=== PATIENT | male | born 1995 | race Caucasian/White ===

== ENCOUNTER 2017-10-15 10:53 | Inpatient (IN) | payer MEDICARE, MEDICAID ==
--- NOTE | 2017-10-15 11:42 | ED ---
General Adult HPI - General Chief complaint: Psychiatric Symptoms Stated complaint: Suicidal Time Seen by Provider: 10/15/17 11:26 Source: patient, RN notes reviewed, old records reviewed Mode of arrival: EMS Limitations: no limitations - History of Present Illness Initial comments: This is a 21-year-old male the ER for evaluation. Patient is ER for evaluation regarding psychiatric illness. Patient is having delusions, not taking his psychiatric medications. Denies drugs or alcohol - Related Data Home Medications Medication Instructions Recorded Confirmed No Known Home Medications [No 10/15/17 10/15/17 Known Home Medications] Allergies Allergy/AdvReac Type Severity Reaction Status Date / Time cat dander Allergy Itching Verified 10/15/17 11:17 dog dander Allergy Itching Verified 10/15/17 11:17 Review of Systems ROS Statement: Those systems with pertinent positive or pertinent negative responses have been documented in the HPI. ROS Other: All systems not noted in ROS Statement are negative. Past Medical History Past Medical History: No Reported History Past Surgical History: No Surgical Hx Reported Past Psychological History: ADD/ADHD, Bipolar, Schizoaffective Disorder, Schizophrenia Smoking Status: Never smoker Past Alcohol Use History: None Reported Past Drug Use History: None Reported General Exam Limitations: no limitations General appearance: alert, in no apparent distress Head exam: Present: atraumatic, normocephalic, normal inspection Eye exam: Present: normal appearance, PERRL, EOMI. Absent: scleral icterus, conjunctival injection, periorbital swelling ENT exam: Present: normal exam, mucous membranes moist Neck exam: Present: normal inspection. Absent: tenderness, meningismus, lymphadenopathy Respiratory exam: Present: normal lung sounds bilaterally. Absent: respiratory distress, wheezes, rales, rhonchi, stridor Cardiovascular Exam: Present: regular rate, normal rhythm, normal heart sounds. Absent: systolic murmur, diastolic murmur, rubs, gallop, clicks GI/Abdominal exam: Present: soft, normal bowel sounds. Absent: distended, tenderness, guarding, rebound, rigid Extremities exam: Present: normal inspection, full ROM, normal capillary refill. Absent: tenderness, pedal edema, joint swelling, calf tenderness Back exam: Present: normal inspection Neurological exam: Present: alert, oriented X3, CN II-XII intact Psychiatric exam: Present: normal affect, normal mood Skin exam: Present: warm, dry, intact, normal color. Absent: rash Course Vital Signs 10/15/17 10/15/17 11:14 15:01 Temperature 99.8 F H 99.0 F Pulse Rate 117 H 100 Respiratory 16 18 Rate Blood Pressure 146/79 128/78 O2 Sat by Pulse 94 L 98 Oximetry - Reevaluation(s) Reevaluation #1: 10/15/17 11:42 Patient's medically clear for psychiatric evaluation Medical Decision Making - Medical Decision Making Vital male seen and evaluated by psychiatry, patient be admitted for psychiatric evaluation and treatment - Lab Data Lab Results 10/15/17 Range/Units 11:25 Urine Opiates Screen Not Detected (NotDetected) Ur Oxycodone Screen Not Detected (NotDetected) Urine Methadone Screen Not Detected (NotDetected) Ur Propoxyphene Screen Not Detected (NotDetected) Ur Barbiturates Screen Not Detected (NotDetected) U Tricyclic Antidepress Not Detected (NotDetected) Ur Phencyclidine Scrn Not Detected (NotDetected) Ur Amphetamines Screen Not Detected (NotDetected) U Methamphetamines Scrn Not Detected (NotDetected) U Benzodiazepines Scrn Not Detected (NotDetected) Urine Cocaine Screen Not Detected (NotDetected) U Marijuana (THC) Screen Not Detected (NotDetected) Disposition Clinical Impression: Acute psychosis, Psychosis Disposition: TRANSFER TO PSYCH HOSP/UNIT Condition: Fair Referrals: None,Stated [Primary Care Provider] - 1-2 days
[2017-10-15 12:07] LABS: Amphetamine Screen,Urine Not Detected (NotDetected); Barbiturate Screen,Urine Not Detected (NotDetected); Benzodiazepines Screen,Urine Not Detected (NotDetected); Cocaine Screen,Urine Not Detected (NotDetected); Methadone Screen, Urine Not Detected (NotDetected); Opiate Screen,Urine Not Detected (NotDetected); Oxycodone Screen, Urine Not Detected (NotDetected); Phencyclidine Screen,Urine Not Detected (NotDetected); Tricyclic Antidepressant,Urine Not Detected (NotDetected); Urn Cannabinoid Scrn Not Detected (NotDetected)
[2017-10-15] MEDS ORDERED: ZIPRASIDONE 20 MG VIAL IM PRN (16:25)
[2017-10-15] MEDS ORDERED: MAG HYDROX/AL HYDROX/SIMETH 30 ML CUP PO PRN (16:25)
[2017-10-15] MEDS ORDERED: MAGNESIUM HYDROXIDE 2,400 MG/10 ML CUP PO PRN (16:25)
[2017-10-15] MEDS ORDERED: ACETAMINOPHEN TAB 325 MG TAB PO PRN (16:25)
[2017-10-15 17:28] VITALS: BMI 25.1
[2017-10-15] MEDS: LORazepam 1 MG TAB PO PRN (17:47)
--- NOTE | 2017-10-15 21:08 | XR ---
EXAMINATION TYPE: XR chest 2V DATE OF EXAM: 10/15/2017 COMPARISON: None HISTORY: Fever TECHNIQUE: Frontal and lateral views of the chest are obtained. FINDINGS: Heart and mediastinum are normal. Lungs are clear. Diaphragm is normal. Bony thorax appear s normal. IMPRESSION: Normal chest.
[2017-10-15] MEDS: SODIUM CHLORIDE 0.9% 1,000 ML IV SCH (22:17)
--- NOTE | 2017-10-15 22:44 | P.HPMEDMHU ---
History of Present Illness H&P Date: 10/22/17 Chief Complaint: MHU HPI The patient is a 21-year-old male with a past medical history of schizophrenia bipolar disorder, attention deficit disorder who was admitted to the mental health unit, after he apparently presented with paranoid delusions reporting that the "spirit Was calling him a Temple" and that people are calling him pedophile. Patient has reported poor sleep and loss of interest other depressive symptomology. The patient reports being off any psychiatric medications and is unable to recall the name and dosages of his meds. The patient apparently has a history of asthma and takes inhaler, he reports his asthma is triggered by exercise and cold weather. He denies any chest pain or shortness of breath or cough at this time. Past Medical History Past Medical History: No Reported History History of Any Multi-Drug Resistant Organisms: None Reported Past Surgical History: Ear Surgery Additional Past Surgical History / Comment(s): When a small child date unknown. Past Anesthesia/Blood Transfusion Reactions: No Reported Reaction Past Psychological History: ADD/ADHD, Bipolar, Schizoaffective Disorder, Schizophrenia Smoking Status: Former smoker Past Alcohol Use History: None Reported Additional Past Alcohol Use History / Comment(s): drank a few last month but reports he does not like it. Past Drug Use History: None Reported Additional Drug Use History / Comment(s): hx of Marjuana use this past year. "Doesn't like it." Medications and Allergies Home Medications Medication Instructions Recorded Confirmed Type No Known Home Medications [No 10/15/17 10/15/17 History Known Home Medications] Allergies Allergy/AdvReac Type Severity Reaction Status Date / Time cat dander Allergy Itching Verified 10/15/17 17:10 dog dander Allergy Itching Verified 10/15/17 17:10 Physical Exam Vitals: Vital Signs Temp Pulse Pulse Resp BP BP Pulse Ox 10/15/17 17:11 97.3 F L 113 H 16 145/95 98 10/15/17 15:39 99.0 F 102 H 20 130/80 98 10/15/17 15:01 99.0 F 100 18 128/78 98 10/15/17 11:14 99.8 F H 117 H 16 146/79 94 L Intake and Output 10/15/17 10/15/17 10/15/17 06:59 14:59 22:59 Other: Weight 68.039 kg 77.1 kg Patient Weight 10/16/17 06:59 Weight 77.1 kg Constitutional: No acute distress, conversant, pleasant Eyes: Anicteric sclerae, moist conjunctiva, no lid-lag, PERRLA ENMT: NC/AT,Oropharynx clear, no erythema, exudates, dry mucous membranes Neck:Supple, FROM, no masses, or JVD, No carotid bruits; No thyromegaly Lungs: Clear to auscultation, Clear to percussion, Normal respiratory effort, no accessory muscle use Cardiovascular: Regular rhythm and tachycardic, No murmurs, gallops, or rubs no peripheral edema Abdominal: Soft Nontender, nom distended, no guarding, no rebound or rigidity, Normoactive bowel sounds No hepatomegaly, No splenomegaly, No palpable mass No abdominal wall hernia noted Skin: Normal temperature, tone, texture, decreased turgor, No induration No subcutaneous nodules, No rash, lesions, No ulcers Extremities:No digital cyanosis No clubbing, Pedal pulses intact and symmetrical Radial pulses intact and symmetrical Normal gait and station, No calf tenderness Psychiatric: Alert and oriented to person, place and time, poor insight poor judgment, flat affect, poor eye contact Neuro: Muscles Strength 5/5 in all 4 extremities, Sensation to light touch grossly present throughout, Cranial nerves II-XII grossly intact. No focal sensory deficits Cranial Nerve Examination - Cranial Nerves Cranial Nerve II- Optic: Intact Cranial Nerve III- Oculomotor: Intact Cranial Nerve IV- Trochlear: Intact Cranial Nerve V- Trigeminal: Intact Cranial Nerve - Abducens: Intact Cranial Nerve VII- Facial: Intact Cranial Nerve VIII- Auditory: Intact Cranial Nerve IX- Glossopharyngeal: Intact Cranial Nerve X- Vagus: Intact Cranial Nerve XI- Accessory: Intact Cranial Nerve XII- Hypoglossal: Intact Thrombosis Risk Factor Assmnt - Choose All That Apply Any of the Below Risk Factors Present?: No Assessment and Plan (1) Schizophrenia, chronic with acute exacerbation Current Visit: Yes Status: Acute Code(s): F20.9 - SCHIZOPHRENIA, UNSPECIFIED SNOMED Code(s): 219214057 (2) Exercise-induced asthma Current Visit: Yes Status: Acute Code(s): J45.990 - EXERCISE INDUCED BRONCHOSPASM SNOMED Code(s): 06229831 (3) Tachycardia Current Visit: Yes Status: Acute Code(s): R00.0 - TACHYCARDIA, UNSPECIFIED SNOMED Code(s): 4209239 Plan: The patient is admitted for acute psychosis on chronic schizophrenia to the mental health unit we'll defer to psychiatry team for progressive in patient treatment and medication dosage adjustment. At present the patient's asthma is stable without any acute exacerbation, review of his vital signs indicate the patient is tachycardic with a low-grade fever, will order CBC CMP chest x-ray and a urinalysis and start him on normal saline at 125 mL an hour as he clinically appears dehydrated. we'll continue to follow his clinical course. I sincerely appreciate the opportunity to be involved in the coordination of this patient's care
[2017-10-15 22:52] LABS: Basophils % (A) 1 %; Eosinophils # (A) 0.1 k/uL (0-0.7); Eosinophils % (A) 2 %; HCT 47.4 % (39.0-53.0); HGB 15.5 gm/dL (13.0-17.5); Lymphocytes # (A) 1.6 k/uL (1.0-4.8); Lymphocytes % (A) 25 %; MCHC 32.6 g/dL (31.0-37.0); MCV 88.7 fL (80.0-100.0); Mean Platelet Volume 8.9; Monocytes # (A) 0.4 k/uL (0-1.0); Monocytes % (A) 7 %; Neutrophils # (A) 3.9 k/uL (1.3-7.7); Neutrophils % (A) 63 %; Platelet Count 198 k/uL (150-450); RBC 5.34 m/uL (4.30-5.90); RDW 13.9 % (11.5-15.5); WBC 6.3 k/uL (3.8-10.6)
[2017-10-15 23:09] LABS: ALT 36 U/L (21-72); AST 16 U/L (17-59); Albumin 4.3 g/dL (3.5-5.0); Alkaline Phosphatase 71 U/L (38-126); Anion Gap 10 mmol/L; Blood Urea Nitrogen 16 mg/dL (9-20); Calcium 9.8 mg/dL (8.4-10.2); Carbon Dioxide 30 mmol/L (22-30); Chloride 102 mmol/L (98-107); Glucose 98 mg/dL (74-99); Potassium 4.4 mmol/L (3.5-5.1); Sodium 142 mmol/L (137-145); Total Bilirubin 0.5 mg/dL (0.2-1.3); Total Protein 7.3 g/dL (6.3-8.2)
[2017-10-16] MEDS: SODIUM CHLORIDE 0.9% 1,000 ML IV SCH (06:26)
[2017-10-16 08:31] LABS: Cholesterol 190 mg/dL (<200); HDL Cholesterol 50 mg/dL (40-60); LDL Cholesterol,Calculated 125 mg/dL (0-99); Triglycerides 74 mg/dL (<150)
--- NOTE | 2017-10-16 10:50 | P.PN ---
Subjective Progress Note Date: 10/16/17 Principal diagnosis: psychosis Patient is a 21-year-old male with past medical history any oh, bipolar, and ADHD who was admitted to the mental health unit for paranoid delusions. We are asked to see him for medical management of his exercise- induced asthma. Patient was started on IV fluids last night with concerns for clinical dehydration secondary to tachycardia. Patient seen and examined. He denies any chest pain, shortness of breath, lightheadedness, dizziness, or palpitations. He is feeling fine and would like his IV removed. He states that he may be tachycardic secondary to have being used multiple herbs over the last several days. He otherwise states that he is feeling home. He denies any nausea, vomiting, diarrhea, or dysuria. Objective - Vital Signs Vital signs: Vital Signs Temp 97.9 F 10/16/17 07:06 Pulse 104 H 10/16/17 07:06 Resp 18 10/16/17 07:06 BP 138/77 10/16/17 07:06 Pulse Ox 98 10/15/17 17:11 Intake & Output 10/15/17 10/16/17 10/16/17 18:59 06:59 18:59 Intake Total 125 Balance 125 Weight 77.1 kg Intake: IV 125 Invasive Line 1 125 - Exam General: non toxic, no distress, appears at stated age Derm: warm, dry Head: atraumatic, normocephalic, symmetric Eyes: EOMI, no lid lag, anicteric sclera Mouth: no lip lesion, mucus membranes moist Cardiovascular: S1S2 reg, no murmur, positive posterior tibial pulse bilateral, Lungs: CTA bilateral, no rhonchi, no rales , no accessory muscle use Abdominal: soft, nontender to palpation, no guarding, no appreciable organomegaly Ext: no gross muscle atrophy, no edema, no contractures Neuro: CN II-XI grossly intact, no focal neuro deficits Psych: Alert, oriented, anxious affect, pacing - Labs CBC & Chem 7: 10/15/17 22:43 10/15/17 22:43 Labs: Abnormal Lab Results - Last 24 Hours (Table) 10/15/17 10/16/17 Range/Units 22:43 07:40 AST 16 L (17-59) U/L LDL Cholesterol, Calc 125 H (0-99) mg/dL Assessment and Plan Assessment: Tachycardia: suspect drug induced versus anxiety related -DC IV fluids -Encourage oral fluid intake discussed with patient -Monitor a new Delusions -Your psych management Exercise-induced asthma -When necessary albuterol Thank you for allowing us to participate in the care of this patient. We will follow peripherally. Do not hesitate to contact us with questions. Someone can be reached from the [facility] hospitalist group at all hours of the day at [phone].
[2017-10-16 10:52] LABS: Appearance,Urine Clear (Clear); Bilirubin,Urine Negative (Negative); Blood,Urine Negative (Negative); Color,Urine Yellow; Glucose,Urine (UA) Negative (Negative); Ketones,Urine Trace (Negative); Leukocyte Esterase,Urine Negative (Negative); Nitrite,Urine Negative (Negative); Protein,Urine Negative (Negative); Specific Gravity,Urine 1.015 (1.001-1.035); Urobilinogen,Urine <2.0 mg/dL (<2.0)
[2017-10-16] MEDS: LORazepam 1 MG TAB PO PRN (16:27)
--- NOTE | 2017-10-16 17:02 | HP ---
HISTORY AND PHYSICAL DATE OF SERVICE: 10/16/2017 IDENTIFYING DATA: The patient is a 21-year-old male. He lives with 4 other roommates. He came to the emergency room for evaluation. CHIEF COMPLAINT: The patient had paranoid feelings. He believes others can read his thoughts. He believes people around him were calling him derogatory names. HISTORY OF PRESENT ILLNESS: Patient reports that he did have a prior psychiatric hospitalization at [facility] in July 2016. He said at that time he was diagnosed with schizophrenia and bipolar disorder. He says he also has a history of ADHD. He had been on ADHD medication in the past, namely Vyvanse. He could not remember what medications he was prescribed from [facility]. He has not been taking any psychotropic medications lately. He says just in the last few days. He started to developed the abnormal thoughts. He believed people were reading his thoughts and reading his mind. He heard people calling him evil things. He cannot identify any stress or other precipitants that might have set this off. He said going back to the holiday or before, he was not having any problems with that. He notes that he takes a number of supplements. Along with that he says he does Kratom and understands that some people developed psychotic symptoms from doing Kratom. He reports that he has been sleeping fair. He has loss of motivation, energy and interest. He does not do much. He spends quite a bit of time just in his house and in his own room. He is on disability for psychiatric issues. He does not do much out in the community. Currently, he is not on any psychotropic medications. He is admitted for further evaluation. SUBSTANCE USE HISTORY: As above. Patient reports no significant use of alcohol. No marijuana or other abusive substances. Patient does say that he had used cocaine on and off with last use being in May. Urine drug screen on admission was negative. PAST MEDICAL HISTORY: The patient reports no significant or current general health complaints. Further medical history and review of systems is as per Dr. Auguste. FAMILY AND SOCIAL HISTORY: Patient says that he lives with 4 roommates. He went through the 10th grade of school. He has been placed on disability for psychiatric reasons. MENTAL STATUS EXAM: Patient gave good eye contact. Psychomotor activity was a little slow. Speech was monotone. He answered questions with brief responses. His thoughts were clear. His affect blunted. His mood reserved. He was somewhat distressed. On cognitive exam, he was oriented x3 and alert. Recent remote memory was intact. He did make an effort to answer formal cognitive questions. Insight and judgment were fair. Fund of knowledge and intellectual level average or slightly below average. PHYSICAL EXAM: As per medical consultation of Dr. Kruse. ASSESSMENT: This 21-year-old male is diagnosed with acute psychotic episode, unclear what factors may be contributing though his use of Kratom may be one factor. STRENGTHS: Include some insight about his current situation, need for treatment. WEAKNESS: Includes lack of follow up for mental health issues. DIAGNOSES: 1. Acute psychotic episode. 2. Rule out drug abuse. RECOMMENDATIONS: Patient will be admitted for comprehensive medical psychiatric and psychosocial evaluation. We will engage the patient in individual and group therapeutic activities. I will start the patient on Zyprexa 10 mg 2 times a day. We will try to make an effort to connect with some in his support system to try to expand our database for diagnostics and treatment planning. We will focus on stabilization and discharge planning. KAYEL / WATSONN: [id number] / MTDGita
[2017-10-16 18:28] LABS: Hemoglobin A1C 5.1 % (4.0-6.0)
[2017-10-17] MEDS: LORazepam 1 MG TAB PO PRN (08:00)
[2017-10-17] MEDS: OLANZapine 10 MG TAB PO SCH ×2 (12:57→20:56)
--- NOTE | 2017-10-17 15:53 | PN ---
PROGRESS NOTE DATE OF SERVICE: 10/17/2017 CHIEF COMPLAINT: The patient had paranoid feelings. He believes others can read his thoughts. He believes people around him were calling him derogatory names. INTERVAL HISTORY: Patient has been doing fair. He had a quiet evening last night. He slept fairly well. Today he has been up and about. He comes out in the day area. He interacts with others. He has attended some groups but not others. He has a quiet manner. He feels that things are a little bit better for him. He seems to have a little less concern about the idea of thought broadcasting. He overall may be a little less paranoid as well. He has not had change in his general health. He tolerates his psychotropic medications. MENTAL STATUS: Patient gave fairly good eye contact. He was a little restless. His thoughts were clear. His affect was somewhat blunted, his mood reserved. He did not appear to be significantly distressed. ASSESSMENT: I will continue the current diagnosis and treatment plan. I will continue psychotropic medications the same. Patient appears to be making progress. We will continue to focus on stabilization and discharge planning. MMODL / IJN: [id number] /
[2017-10-18] MEDS: OLANZapine 10 MG TAB PO SCH ×2 (08:12→21:05)
[2017-10-18] MEDS: LORazepam 1 MG TAB PO PRN ×2 (08:12→16:39)
--- NOTE | 2017-10-18 18:34 | PN ---
PROGRESS NOTE DATE OF SERVICE: 10/18/2017. INTERVAL HISTORY: Patient is seen in cross coverage today for Dr. Almanzar. He reports ongoing symptoms of he feels like people on the outside can know what his thoughts are. He states that prior to hospitalization, people were knowing what his thoughts were and were calling a pedophile and it is very bothersome for him. He feels like it is scary. He does seem to be eating well. He is not sleeping that well. He does seem to be compliant with his Zyprexa and does not seem to voice any adverse side effects. MENTAL STATUS EXAM: He is alert, cooperative. Affect is restricted. He denies any thoughts of harm to self or others. He reports that the people on the outside of the hospital know what he is thinking and asks me to listen during the session. He does report that he heard people saying shut up and calling him a pedophile. He does not show any significant agitation. PLAN: Will maintain the Zyprexa as current. We will monitor for any medication side effects. He is also on Ativan p.r.n. We will continue to monitor for medication side effects. Monitor his ongoing response. MMODL / IJN: [id number] /
[2017-10-18] MEDS ORDERED: WATER FOR INJECTION, STERILE 10 ML IV ONE (18:42)
[2017-10-19] MEDS: LORazepam 1 MG TAB PO PRN ×2 (08:04→17:45)
[2017-10-19] MEDS: OLANZapine 10 MG TAB PO SCH ×2 (08:04→21:02)
--- NOTE | 2017-10-19 14:38 | PN ---
PROGRESS NOTE DATE OF SERVICE: 10/19/2017. INTERVAL HISTORY: Patient is seen in cross coverage today for Dr. Almanzar. He was placed on a one-to-one last night as he was verbalizing thoughts of suicide. He currently today appears to be feeling better. He does describe still feeling as though people on the outside of the hospital can tell what his thoughts are. He states he feels like the new medication may be having an impact where he is saying something and it changes his thoughts. He seems to be tolerating the new medication. He is not having any thoughts of suicide currently. He does feel safe on the unit. MENTAL STATUS EXAM: He is alert, pleasant, cooperative. He denies any current thoughts of suicide. He does not voice any thoughts of harm to others. He denies any current auditory hallucinations. He does feel that people on the outside of the hospital still know what his thoughts are. He describes feeling as though he says something it changes his thoughts. PLAN: Patient will be maintained on current dose of Zyprexa. We will monitor side effects and monitor his ongoing response. Continue to monitor regarding any thoughts of suicide. Will discontinue the one-to-one precautions and placed back on a SP 15 minute precautions. MMODL / IJN: [id number] /
[2017-10-20] MEDS: LORazepam 1 MG TAB PO PRN ×2 (06:53→20:31)
[2017-10-20] MEDS: OLANZapine 10 MG TAB PO SCH (09:09)
[2017-10-20] MEDS ORDERED: OLANZapine 5 MG TAB PO STA (13:05)
[2017-10-20] MEDS ORDERED: OLANZapine 10 MG TAB PO STA (17:37)
[2017-10-20] MEDS: HALOPERIDOL 2 MG TAB PO SCH (17:59)
[2017-10-20] MEDS: IMIPRAMINE 25 MG TAB PO SCH (20:30)
--- NOTE | 2017-10-20 23:06 | PN ---
PROGRESS NOTE DATE OF SERVICE: 10/20/2017. CHIEF COMPLAINT: The patient had paranoid feelings. He believes others could read his thoughts. He believes people around him were calling him derogatory names. INTERVAL HISTORY: Patient has been doing fair. He had a quiet evening last night. He slept fair. He says that he does wake up he in the middle of the night and sometimes has distressing feelings. He says he continues to have a sense that people can read his thoughts. He did sleep 6 hours last night. He comes out in the day area. He will interact with others. He has been attending groups a fair amount of the time. He seems to be appropriate and responsive in the group. He has not had change in his general health. He tolerates his psychotropic medications. MENTAL STATUS: The patient gave fairly good eye contact. Psychomotor activity was a little restless. His speech was clear. His affect blunted. His mood reserved. He seemed somewhat distressed. ASSESSMENT: I will continue the current diagnosis and treatment plan. I had an extensive discussion with the patient regarding his symptoms. He does not feel like he has made much progress. I will increase his Zyprexa to 15 mg twice a day. I will add Haldol 2 mg twice a day and start the patient on Tofranil 25 mg at bedtime and I will start the patient on Tofranil 25 mg at bedtime. We will focus on stabilization and discharge planning. ROSETTA / AMANUEL: [id number] /
[2017-10-21] MEDS: HALOPERIDOL 2 MG TAB PO SCH (08:33)
[2017-10-21] MEDS: OLANZapine 5 MG TAB PO SCH ×2 (08:33→20:26)
[2017-10-21] MEDS: LORazepam 1 MG TAB PO PRN (08:34)
[2017-10-21] MEDS ORDERED: HALOPERIDOL 5 MG TAB PO STA (15:28)
--- NOTE | 2017-10-21 17:40 | PN ---
PROGRESS NOTE DATE OF SERVICE: 10/21/2017 CHIEF COMPLAINT: The patient had paranoid feelings. He believes others could read his thoughts. He believes people around him were calling him derogatory names. INTERVAL HISTORY: Patient has been doing fair. He had a quiet evening last night. He slept well. Today he has been up. He continues with the same complaint. He says he is quite distressed because he continues to have the experience that people are reading his mind. He has not had any change with the start of Haldol. He has not noted any side effects or problems with it. He cannot say that he sees any difference, either with the addition of Haldol or the increase in Zyprexa. He says he still has a lot of worries and fears about this situation. He has been cooperative with care. He tends not to attend groups. He says he is uncomfortable in settings with too many people. He has made some groups sporadically. He has not had change in his general health. He tolerates his psychotropic medications. MENTAL STATUS: Patient gave good eye contact. Psychomotor activity was a little restless. Speech was clear. He answered questions with brief responses. His affect was blunted, mood reserved. He seemed somewhat distressed. ASSESSMENT: I will continue the current diagnosis and treatment plan. I will increase Haldol to 5 mg twice a day. He will continue Zyprexa 15 mg twice a day plus his Tofranil 25 mg at bedtime. We will continue to focus on stabilization and discharge planning. ROSETTA / AMANUEL: [id number] /
[2017-10-21] MEDS: IMIPRAMINE 25 MG TAB PO SCH (20:26)
[2017-10-21] MEDS: HALOPERIDOL 5 MG TAB PO SCH (20:26)
[2017-10-22] MEDS: OLANZapine 5 MG TAB PO SCH ×2 (08:19→20:08)
[2017-10-22] MEDS: HALOPERIDOL 5 MG TAB PO SCH ×2 (08:19→20:08)
[2017-10-22] MEDS: hydrOXYzine PAMOATE 25 MG CAP PO SCH ×2 (15:09→21:09)
--- NOTE | 2017-10-22 17:17 | PN ---
PROGRESS NOTE DATE OF SERVICE: 10/22/2017. CHIEF COMPLAINT: The patient had paranoid feelings. He believes others could read his thoughts. He believes people around him are calling him derogatory names. INTERVAL HISTORY: Patient has been doing fair. He had a quiet evening last night. He said he slept well. Today he has been up. He comes out in the day area. He avoids groups. He will interact some with others. He tends to keep to himself. He has not had any problems with his medications. 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 He has not had any problems with the increase in his antipsychotic medications. We talked about his living situation and he said that his mother may be helping him move to a different apartment. He is not comfortable going back to where he was living because that is where the thought problems developed. He has not had change in his general health. He tolerates his psychotropic medications. MENTAL STATUS: Patient gave fair eye contact. Psychomotor activity was a little restless. Speech was clear. Answered questions with brief responses. His affect was blunted. His mood reserved. It was difficult to say if he was distressed. ASSESSMENT: I will continue the current diagnosis and treatment plan. I will start the patient on Vistaril 50 mg 3 times a day. Vistaril may add some to quieting anxiety. In addition, Vistaril may counter some mild degree of EPS symptoms that Haldol could be initiating. We will need input from the patient's mother as part of discharge planning. MMPETEL / WATSONN: [id number] /
[2017-10-22] MEDS: IMIPRAMINE 25 MG TAB PO SCH (21:09)
[2017-10-23] MEDS: hydrOXYzine PAMOATE 25 MG CAP PO SCH ×3 (08:45→21:18)
[2017-10-23] MEDS: OLANZapine 5 MG TAB PO SCH ×2 (08:45→21:17)
[2017-10-23] MEDS: HALOPERIDOL 5 MG TAB PO SCH ×2 (08:46→21:17)
--- NOTE | 2017-10-23 20:18 | PN ---
PROGRESS NOTE DATE OF SERVICE: 10/23/2017 CHIEF COMPLAINT: The patient had paranoid feelings. He believes others can read his thoughts. He believes people around him are calling him derogatory names. INTERVAL HISTORY: Patient has been doing fair. He had a quiet evening last night. He slept fair. Today he has been up and about. He did share that there may be some slight reduction in his issues of thought broadcasting. He says it seems to go up and down for him. He has periods in the day where it may be a little quieter, though then periods where it feels more intense. He has not had problems with the 2 antipsychotic medications. It is noteworthy that we had a contact with his mother. His mother expressed concern that there were a lot of signals at his house that things were going bad for him. He was not taking care of personal care. There were mice in his room. There was information on his laptop suggesting he was quite paranoid and also that he was looking up things on the internet about suicide. He does have a history of some aggressive behavior as a teenager, according to his mother. He has not had change in his general health. He tolerates his psychotropic medications. MENTAL STATUS: Patient gave fair eye contact. Psychomotor activity was a little stiff. He answered questions with brief responses. His thoughts were clear, his affect blunted, his mood reserved. He was moderately distressed. ASSESSMENT: I will continue the current diagnosis and treatment plan. I will increase the patient's Haldol to 10 mg twice a day. We will continue Zyprexa 15 mg twice a day. He is also on Tofranil 25 mg at bedtime. We will continue to focus on stabilization and discharge planning. MMODL / IJN: [id number] /
[2017-10-23] MEDS: IMIPRAMINE 25 MG TAB PO SCH (21:17)
[2017-10-24] MEDS: HALOPERIDOL 5 MG TAB PO SCH ×2 (08:09→20:19)
[2017-10-24] MEDS: hydrOXYzine PAMOATE 25 MG CAP PO SCH ×3 (08:09→20:19)
[2017-10-24] MEDS: OLANZapine 5 MG TAB PO SCH ×2 (08:10→20:19)
[2017-10-24] MEDS: IMIPRAMINE 25 MG TAB PO SCH (20:19)
--- NOTE | 2017-10-24 22:28 | PN ---
PROGRESS NOTE DATE OF SERVICE: 10/24/2017 CHIEF COMPLAINT: The patient had paranoid feelings. He believes others can read his thoughts. He believes people are calling him derogatory names. INTERVAL HISTORY: The patient has been doing fair. He had a quiet evening last night. He slept well. Today he has been up. He says his feelings that others read his thoughts have lessened significantly. He feels much better about it. He has a calmer manner, saying that he is much relieved to see some quieting of these experiences. He tends to keep to himself. He tends not to go to group activities. He has not had change in his general health. He tolerates his psychotropic medications. MENTAL STATUS: Patient gave fair eye contact. Psychomotor activity and speech were normal. His thoughts were clear. His affect was somewhat blunted. His mood was quiet. He did not appear to be significantly distressed. ASSESSMENT: I will continue the current diagnosis and treatment plan, continue psychotropic medications the same. Patient appears to be making progress. We will focus on stabilization and discharge planning. I discussed that if the patient continues to show progress, we could look at discharging him early in the week. MMODL / IJN: [id number] /
[2017-10-25] MEDS: OLANZapine 5 MG TAB PO SCH ×2 (08:09→20:25)
[2017-10-25] MEDS: HALOPERIDOL 5 MG TAB PO SCH ×2 (08:09→20:29)
[2017-10-25] MEDS: hydrOXYzine PAMOATE 25 MG CAP PO SCH ×3 (08:09→20:30)
--- NOTE | 2017-10-25 18:35 | PN ---
PROGRESS NOTE DATE OF SERVICE: 10/25/2017. CHIEF COMPLAINT: The patient had paranoid feelings. He believes others can read his thoughts and that people were calling him derogatory names. INTERVAL HISTORY: Patient has been doing fair. He had a quiet evening last night. He slept fairly well. Today he has been up. It is noted that yesterday he began saying that he had quite a reduction in the thought broadcasting symptoms that have been plaguing him. He says he continues to do better today in that regard. He says that he had a contact with his mother who also believes that he seems to be doing better with his current medications. He has a better outlook. He is calmer. Anxiety is less. He has not had change in his general health. He tolerates his psychotropic medications. MENTAL STATUS: Patient gave good eye contact. Psychomotor activity was slowed. Speech was monotone. He answered questions with brief responses. His thoughts were clear. Affect somewhat blunted. His mood was quiet. He did not appear to be distressed. ASSESSMENT: I will continue the current diagnosis and treatment plan. I will continue psychotropic medications the same. The patient appears to be making progress. We will continue to focus on stabilization and discharge planning. MMODL / IJN: [id number] /
[2017-10-25] MEDS: IMIPRAMINE 25 MG TAB PO SCH (20:49)
[2017-10-26 06:08] VITALS: RESP 16
[2017-10-26] MEDS: OLANZapine 5 MG TAB PO SCH ×2 (08:42→20:33)
[2017-10-26] MEDS: hydrOXYzine PAMOATE 25 MG CAP PO SCH ×3 (08:42→20:33)
[2017-10-26] MEDS: HALOPERIDOL 5 MG TAB PO SCH ×2 (08:42→20:33)
--- NOTE | 2017-10-26 19:45 | PN ---
PROGRESS NOTE DATE OF SERVICE: 10/26/2017. CHIEF COMPLAINT: The patient had paranoid feelings. He believes others can read his thoughts and that people were calling him derogatory names. INTERVAL HISTORY: Patient has been doing fair. He had a quiet evening last night. He slept fairly well. Today he has been up. He has attended 2 groups today, which is a positive. He seems to be doing a little better overall. He has a better outlook. He says that some of the thought issues still persist, though he feels he has better control over it. He has had some positive conversations with his mother. We talked about the plan of getting his mother in for family meeting of which he was in agreement. He has not had change in his general health. He tolerates his psychotropic medications. MENTAL STATUS: Patient gave fairly good eye contact. Psychomotor activity was slow. Speech was monotone. He answered questions with brief responses. His thoughts were clear. His affect blunted. His mood reserved. He did not seem to be significantly distressed. He did not exhibit any clear issues of thought disorder. ASSESSMENT: I will continue current diagnosis and treatment plan. Will continue psychotropic medications the same. Patient has been making progress. We will set up a family meeting as part of treatment and discharge planning. MMODL / IJN: [id number] /
[2017-10-26] MEDS: IMIPRAMINE 25 MG TAB PO SCH (20:34)
[2017-10-27] MEDS: HALOPERIDOL 5 MG TAB PO SCH ×2 (08:40→20:51)
[2017-10-27] MEDS: hydrOXYzine PAMOATE 25 MG CAP PO SCH ×3 (08:40→20:51)
[2017-10-27] MEDS: OLANZapine 5 MG TAB PO SCH ×2 (09:45→20:51)
[2017-10-27] MEDS ORDERED: INFLUENZA VACCINE (6 MOS+) 60 MCG/0.5 ML SYRINGE IM ONE (12:55)
[2017-10-27] MEDS ORDERED: HEPATITIS A VIRUS VACCINE/PF 1ML SYRG IM ONE (12:55)
--- NOTE | 2017-10-27 15:31 | PN ---
PROGRESS NOTE DATE OF SERVICE: 10/27/2017 CHIEF COMPLAINT: The patient had paranoid feelings. He believes others can read his thoughts and that people were calling him derogatory names. INTERVAL HISTORY: Patient has been doing fairly well. He had a quiet evening last night. He slept fairly well today. He has been up. He continues to keep to himself. He does come out on the unit. He will interact some with others. He attends groups sporadically. He says overall his thoughts are clear. He has been talking with his mother. He says his mother has reflected that she thinks things are better as well. He has been able to talk with his mother about some discharge planning issues, that she is going to help him with a better living situation. He has not had change in his general health. He tolerates his psychotropic medications. MENTAL STATUS: Patient gave fairly good eye contact. Psychomotor activity was a little slowed. Speech was somewhat soft. He answered questions with direct responses. His thoughts were clear. His affect was a little blunted. His mood was quiet. He did not appear to be distressed. ASSESSMENT: I will continue the current diagnosis and treatment plan. Will continue psychotropic medications the same. Patient is making progress. We will set up a family meeting with the patient and his mother as part of discharge planning. I would anticipate discharging the patient in the next few days. ROSETTA / AMANUEL: [id number] /
[2017-10-27] MEDS: IMIPRAMINE 25 MG TAB PO SCH (20:51)
[2017-10-28 07:04] VITALS: BP 136/78; PULSE 75; TEMP 97.9
[2017-10-28] MEDS ORDERED: INFLUENZA VACCINE (6 MOS+) 60 MCG/0.5 ML SYRINGE IM ONE (08:56)
[2017-10-28] MEDS ORDERED: HEPATITIS A VIRUS VACCINE/PF 1ML SYRG IM ONE (08:57)
[2017-10-28] MEDS: HALOPERIDOL 5 MG TAB PO SCH (09:33)
[2017-10-28] MEDS: hydrOXYzine PAMOATE 25 MG CAP PO SCH (09:33)
[2017-10-28] MEDS: OLANZapine 5 MG TAB PO SCH (09:33)
[2017-10-28] MEDS ORDERED: HALOPERIDOL 5 MG TAB PO SCH ×2 (16:00→21:00)
--- NOTE | 2017-10-29 23:25 | DS ---
DISCHARGE SUMMARY DATE OF ADMISSION: 10/15/2017. DATE OF DISCHARGE: 10/28/2017. ADMISSION AND DISCHARGE DIAGNOSES: 1. Acute psychotic episode. 2. Rule out drug abuse. HISTORY OF PRESENT ILLNESS: The patient is a 21-year-old male. He presented with paranoid feelings. He believed that others could read his thoughts and he believed people around him were calling him derogatory names. He had one prior psychiatric hospitalization at [facility] in July 2016. At that time, he was diagnosed with schizophrenia and bipolar disorder by his report. He also indicated a history of ADHD. He was vague about medications, though noted that in recent days leading up to his hospitalization he had stopped taking psychotropic medications. He started developing the feelings of thought broadcasting. He could not really identify precipitants to the change. He noted that going back to the holidays he felt he was doing well and was not having any problems with thought disorder. He acknowledged using various supplements including Kratom. He is on disability for psychiatric issues, though there were no details available. He was not taking any psychotropic medications at the time of admission. PAST MEDICAL HISTORY AND PHYSICAL EXAM: As per Dr. Fraga. MENTAL STATUS EXAM: Patient gave good eye contact. Psychomotor activity was slow. Speech was monotone. He answered questions with brief responses. His thoughts were clear, affect blunted. Mood reserved. He was somewhat distressed. Cognition was clear. COURSE OF HOSPITALIZATION: Patient was admitted for comprehensive medical, psychiatric, and psychosocial evaluation. We engaged the patient in individual and group therapeutic activities. On admission the patient was started on Zyprexa which was titrated to 15 mg twice a day. For a number of days early on his hospitalization the patient continued to report having the problems of believing that others were reading his thoughts. He tended to keep to himself. He did not attend groups. He would wander some. He would interact a little with others, though mostly kept to himself. He would isolate himself at times. He chose not to attend any group activities during his hospital stay. For a number of days, he continued to report no change in his status. Given that the patient showed no change at all in his report of the symptoms he had of thought disorder, on October 21, he was started on Haldol 5 mg twice a day. He had no problems with the start of Haldol. On the the dose was increased to 10 mg twice a day. The patient noted on the that he thought his thought broadcasting was "a little quieter", though he still was reporting periods where he felt the thoughts would come back and be quite intense. As his hospitalization progressed, he had good improvement in this regard. He noted that his symptoms of thought broadcasting seemed to be quieting. He talked about how he felt that he could actually begin to control these thoughts and that they were less intrusive and less intense overall he said in discussions he had with his mother. During the hospital stay she was also reporting that he seemed to be doing quite a bit better with the medications. The patient was able to engage in discharge planning. He talked with his mother about the plans that he would be able to live with her temporarily while she helps him get settled in to a better living situation. The patient indicated that he was feeling better overall and that his mother was reflecting the same. He was in agreement with discharge plans. CONDITION AT DISCHARGE: Patient was stable. His mood was improved. He was reporting no significant issues with thought broadcasting or other psychotic symptoms. He had significant reduction in paranoia. He tolerated his medications well. RECOMMENDATIONS AND FOLLOWUP: The patient was discharged to home. DISCHARGE MEDICATION: 1. Zyprexa 15 mg twice a day. 2. Haldol 10 mg twice a day. 3. Tofranil 25 mg at bedtime. FOLLOWUP: He has followup with [facility] in one week. ROSETTA / AMANUEL: [id number] /
== END 2017-10-28 14:40 | disposition home or self-care (01) | DRG 885 ==
LOC: EC 10:53 → 3MHU 15:37 → MERGE 15:37 → 3MHU 15:55
PROVIDERS: ADMIT Psychiatry & Neurology Psychiatry; ATTEND Psychiatry & Neurology Psychiatry
DX: F23 Brief psychotic disorder (principal); R45.851 Suicidal ideations; F22 Delusional disorders; F31.9 Bipolar disorder, unspecified; F41.9 Anxiety disorder, unspecified; F90.9 Attention-deficit hyperactivity disorder, unspecified type; J45.990 Exercise induced bronchospasm; R00.0 Tachycardia, unspecified; Z91.048 Other nonmedicinal substance allergy status
CPT/HCPCS: 71046; 80053; 80061; 80306; 81003; 82075; 83036; 85025; 90632; 90686; 93005; 99285

== ENCOUNTER 2017-11-08 00:45 | Emergency (ER) | payer MEDICARE, OTHER ==
[2017-11-08 00:51] VITALS: TEMP 98.2
[2017-11-08 03:08] VITALS: BP 141/89; PULSE 111; RESP 18
--- NOTE | 2017-11-08 03:08 | ED ---
Psych HPI - General Chief Complaint: Psychiatric Symptoms Stated Complaint: Mental Health Time Seen by Provider: 11/08/17 00:53 Source: patient Mode of arrival: ambulatory - History of Present Illness Initial Comments: This patient is 21-year-old man who presents to be evaluated for auditory hallucinations and a feeling like spirits are touching him. The patient states the auditory hallucinations have been going on for a while but he now has a feeling like spirits are touching in. He denies extreme anxiety related to this. He denies suicidal or homicidal ideation. MD Complaint: other -: days(s) Associated Psychiatric Symptoms: auditory hallucinations, other History of same: Yes Quality: constant Improves With: none Worsens With: none Associated Symptoms: denies other symptoms - Related Data Previous Rx's Medication Instructions Recorded Haloperidol [Haldol] 10 mg PO BID #120 tab 10/28/17 Imipramine [Tofranil] 25 mg PO HS #30 tab 10/28/17 OLANZapine [ZyPREXA] 15 mg PO BID #180 tab 10/28/17 Allergies Allergy/AdvReac Type Severity Reaction Status Date / Time cat dander Allergy Itching Verified 10/15/17 17:10 dog dander Allergy Itching Verified 10/15/17 17:10 Review of Systems ROS Statement: Those systems with pertinent positive or pertinent negative responses have been documented in the HPI. ROS Other: All systems not noted in ROS Statement are negative. Constitutional: Denies: fever, chills Respiratory: Denies: cough, dyspnea Cardiovascular: Denies: chest pain, palpitations, syncope Gastrointestinal: Denies: abdominal pain, vomiting, diarrhea Genitourinary: Denies: dysuria, hematuria Musculoskeletal: Denies: back pain Skin: Denies: rash Neurological: Denies: headache, weakness, numbness, paresthesias Psychiatric: Reports: auditory hallucinations, visual hallucinations. Denies: anxiety, depression, homicidal thoughts, suicidal thoughts Past Medical History Past Medical History: No Reported History History of Any Multi-Drug Resistant Organisms: None Reported Past Surgical History: Ear Surgery Additional Past Surgical History / Comment(s): When a small child date unknown. Past Anesthesia/Blood Transfusion Reactions: No Reported Reaction Past Psychological History: ADD/ADHD, Bipolar, Schizoaffective Disorder, Schizophrenia Smoking Status: Former smoker Past Alcohol Use History: None Reported Past Drug Use History: Cocaine General Exam Limitations: no limitations General appearance: alert, in no apparent distress Head exam: Present: atraumatic, normocephalic Eye exam: Present: normal appearance, PERRL, EOMI. Absent: scleral icterus, conjunctival injection Neck exam: Present: normal inspection Respiratory exam: Present: normal lung sounds bilaterally. Absent: respiratory distress, wheezes, rales, rhonchi, stridor Cardiovascular Exam: Present: regular rate, normal rhythm, normal heart sounds. Absent: systolic murmur, diastolic murmur, rubs, gallop GI/Abdominal exam: Present: soft. Absent: distended, tenderness, guarding, rebound, mass Extremities exam: Present: normal inspection, normal capillary refill. Absent: pedal edema, calf tenderness Back exam: Present: normal inspection. Absent: CVA tenderness (R), CVA tenderness (L) Neurological exam: Present: alert Psychiatric exam: Present: normal mood. Absent: depressed, agitated, manic, homicidal ideation, suicidal ideation Skin exam: Present: warm, dry, intact, normal color. Absent: rash Course Vital Signs 11/08/17 11/08/17 00:47 03:05 Temperature 98.2 F Pulse Rate 114 H 111 H Respiratory 20 18 Rate Blood Pressure 145/99 141/89 O2 Sat by Pulse 97 98 Oximetry Disposition Clinical Impression: Acute psychosis Disposition: HOME SELF-CARE Condition: Fair Instructions: Schizophrenia (ED) Referrals: None,Stated [Primary Care Provider] - 1-2 days
== END 2017-11-08 03:39 | disposition home or self-care (01) ==
LOC: EC 00:45
DX: F23 Brief psychotic disorder (principal); F31.9 Bipolar disorder, unspecified; Z87.891 Personal history of nicotine dependence; Z91.09 Other allergy status, other than to drugs and biological substances
CPT/HCPCS: 82075; 99284

== ENCOUNTER 2020-01-11 10:04 | Inpatient (IN) | payer MEDICARE, OTHER ==
[2020-01-11] MEDS ORDERED: DIPH,PERTUS(ACELL)TETVAC-LF 0.5 ML VIAL IM ONE (10:14)
--- NOTE | 2020-01-11 10:21 | ED ---
General Adult HPI - General Chief complaint: Trauma Stated complaint: trauma Time Seen by Provider: 01/11/20 10:05 Source: patient, EMS, RN notes reviewed Mode of arrival: EMS Limitations: no limitations - History of Present Illness Initial comments: Patient is a 24-year-old male presenting to the emergency department for attempted suicide. Patient admits to being depressed. Patient states he used a screwdriver as well as a X-Acto knife to his neck and bilateral forearms. Incident occurred around 2 hours ago. Unclear last tetanus. Patient states he is depressed secondary to legal problems. Patient denies any ingestion. - Related Data Home Medications Medication Instructions Recorded Confirmed No Known Home Medications 01/11/20 01/11/20 Allergies Allergy/AdvReac Type Severity Reaction Status Date / Time cat dander Allergy Itching Verified 01/11/20 10:56 dog dander Allergy Itching Verified 01/11/20 10:56 Review of Systems ROS Statement: Those systems with pertinent positive or pertinent negative responses have been documented in the HPI. ROS Other: All systems not noted in ROS Statement are negative. Constitutional: Denies: fever Eyes: Denies: eye pain ENT: Denies: ear pain Respiratory: Denies: cough Cardiovascular: Denies: chest pain Endocrine: Denies: fatigue Gastrointestinal: Denies: abdominal pain Genitourinary: Denies: dysuria Musculoskeletal: Denies: back pain Skin: Reports: as per HPI Past Medical History Past Medical History: No Reported History History of Any Multi-Drug Resistant Organisms: None Reported Past Surgical History: Ear Surgery Additional Past Surgical History / Comment(s): When a small child date unknown. Past Anesthesia/Blood Transfusion Reactions: No Reported Reaction Past Psychological History: ADD/ADHD, Bipolar, Schizoaffective Disorder, Schizophrenia Smoking Status: Former smoker Past Alcohol Use History: None Reported Past Drug Use History: Cocaine General Exam Limitations: no limitations General appearance: alert, in no apparent distress Head exam: Present: atraumatic, normocephalic Eye exam: Present: normal appearance, PERRL, EOMI ENT exam: Present: normal oropharynx, other (Multiple superficial neck abrasions . There is an approximate 3 cm superficial laceration to the right side of the neck that does not involve the subcutaneous tissue. This is fully visualized on a clean bloodless field) Neck exam: Present: normal inspection. Absent: tenderness Respiratory exam: Present: normal lung sounds bilaterally Cardiovascular Exam: Present: regular rate, normal rhythm Expanded Peripheral pulses: 2+: Radial (R), Radial (L) GI/Abdominal exam: Present: soft. Absent: tenderness Extremities exam: Present: other (Large bilateral forearm lacerations extending near the entire length in a vertical pattern from just above the wrist to near the elbow. This does go through the subcutaneous area and on the left side does nitrate the fascia somewhat. No obvious visual tendon injury. All fingers distally have good cap refill, sensation, and strength. No weakness with flexion of any fingers or thumb.) Back exam: Present: normal inspection Neurological exam: Present: alert, oriented X3, CN II-XII intact. Absent: motor sensory deficit Expanded Sensory exam: Upper Extremity Light Touch: Normal Motor strength exam: RUE: 5, LUE: 5, RLE: 5, LLE: 5 Psychiatric exam: Present: flat affect Skin exam: Present: abrasion (Neck abrasions), other (Bilateral forearm lacerations) Course Vital Signs 01/11/20 10:04 Temperature 98.5 F Pulse Rate 92 Respiratory 18 Rate Blood Pressure 145/92 O2 Sat by Pulse 99 Oximetry - Reevaluation(s) Reevaluation #1: 01/11/20 10:21 Case was discussed with Dr. Kwon prior to patient arrival. 01/11/20 10:27 Case again discussed with Dr. Kwon who is now present and evaluating the patient. 01/11/20 11:14 Patient was reevaluated and updated. Patient is going to or at this time. EKG Findings - EKG Comments: EKG Findings:: Sinus rhythm at 88. Sinus arrhythmia. WA 152. QRS 84. QT 352. QTC 425. Normal axis. Normal QRS. No acute ST change. Medical Decision Making - Radiology Data Radiology results: image reviewed (Chest and pelvis x-rays show no acute process) Critical Care Time Critical Care Time: Yes Total Critical Care Time: 31 Disposition Clinical Impression: Laceration of arm, left, complicated, Laceration of arm, right, complicated, Neck abrasion, Suicide attempt Disposition: ADMITTED IP TO THIS [facility] Condition: Serious Is patient prescribed a controlled substance at d/c from ED?: No Decision Time: 10:52
--- NOTE | 2020-01-11 10:30 | XR ---
EXAMINATION TYPE: XR chest 1V portable DATE OF EXAM: 01/11/2020 COMPARISON: 10/15/2017 HISTORY: Pain post trauma TECHNIQUE: Single frontal view of the chest is obtained. FINDINGS: There is no focal air space opacity, pleural effusion, or pneumothorax seen. The cardiac silhouette size is within normal limits. The osseous structures are intact. IMPRESSION: No acute process.
--- NOTE | 2020-01-11 10:31 | XR ---
EXAMINATION TYPE: XR pelvis AP view DATE OF EXAM: 01/11/2020 COMPARISON: NONE HISTORY: Laceration with pain The osseous structures are intact and the joint spaces are preserved. No acute fracture is seen. Vi sualized bowel gas pattern is nonspecific. Small phleboliths in the left pelvis. IMPRESSION: 1. No acute fracture.
[2020-01-11] MEDS ORDERED: MORPHINE SULFATE 4 MG/ML SYRINGE IV PRN (10:58)
[2020-01-11] MEDS ORDERED: NALOXONE 0.4 MG/ML 1 ML VIAL IV PRN ×2 (10:58→12:19)
--- NOTE | 2020-01-11 11:01 | XR ---
EXAMINATION TYPE: XR chest 1V DATE OF EXAM: 01/11/2020 COMPARISON: 01/11/2020 HISTORY: Central line placement TECHNIQUE: Single frontal view of the chest is obtained. FINDINGS: There is no focal air space opacity, pleural effusion, or pneumothorax seen. The cardiac silhouette size is within normal limits. The osseous structures are intact. Coarsened central inter stitium. Heart size normal. IMPRESSION: 1. Central line appears in good position. Slightly coarsened central interstitium can be on the basis of reduced inspiration correlate for interstitial pneumonitis or bronchitis.
[2020-01-11] MEDS: SODIUM CHLORIDE 0.9% 1,000 ML IV SCH ×3 (11:07→23:52)
[2020-01-11 11:21] LABS: ALT 31 U/L (4-49); AST 60 U/L (17-59); African American GFR (CKD) >90 (>60 ml/min/1.73 sqM); Albumin 4.3 g/dL (3.5-5.0); Alcohol <10 mg/dL; Alkaline Phosphatase 59 U/L (38-126); Amylase 53 U/L (30-110); Anion Gap 11 mmol/L; Blood Urea Nitrogen 11 mg/dL (9-20); Calcium 9.2 mg/dL (8.4-10.2); Carbon Dioxide 22 mmol/L (22-30); Chloride 102 mmol/L (98-107); Glucose 91 mg/dL (74-99); Non-African American GFR(CKD) >90 (>60 ml/min/1.73 sqM); Potassium 4.2 mmol/L (3.5-5.1); Sodium 135 mmol/L (137-145); Total Bilirubin 1.4 mg/dL (0.2-1.3); Total Protein 7.2 g/dL (6.3-8.2)
[2020-01-11] MEDS ORDERED: MIDAZOLAM 2 MG/2 ML VIAL ONE (11:30)
[2020-01-11] MEDS ORDERED: PROPOFOL 10 MG/ML 20 ML VIAL IV ONE (11:30)
[2020-01-11] MEDS ORDERED: fentaNYL (PF) 50 MCG/ML 2 ML AMP ONE (11:30)
[2020-01-11] MEDS ORDERED: SUCCINYLCHOLINE CHLORIDE 100 MG/5 ML SYR IV ONE (11:30)
[2020-01-11 11:31] LABS: Basophils % (A) 0 %; Eosinophils # (A) 0.1 k/uL (0-0.7); Eosinophils % (A) 1 %; HCT 42.5 % (39.0-53.0); HGB 14.3 gm/dL (13.0-17.5); Lymphocytes # (A) 1.5 k/uL (1.0-4.8); Lymphocytes % (A) 16 %; MCH 30.5 pg (25.0-35.0); MCHC 33.6 g/dL (31.0-37.0); MCV 90.6 fL (80.0-100.0); Mean Platelet Volume 8.8; Monocytes # (A) 0.7 k/uL (0-1.0); Monocytes % (A) 7 %; Neutrophils # (A) 7.3 k/uL (1.3-7.7); Neutrophils % (A) 75 %; Platelet Count 191 k/uL (150-450); RBC 4.69 m/uL (4.30-5.90); RDW 12.1 % (11.5-15.5); WBC 9.7 k/uL (3.8-10.6)
[2020-01-11 11:43] LABS: Creatine Kinase 1463 U/L (55-170)
[2020-01-11 11:45] LABS: Creatine Kinase MB 4.3 ng/mL (0.0-2.4); INR 1.2 (<1.2); Prothrombin Time 11.8 sec (9.0-12.0); Troponin I <0.012 ng/mL (0.000-0.034)
[2020-01-11 11:52] LABS: Partial Thromboplastin Time 20.1 sec (22.0-30.0)
[2020-01-11] MEDS ORDERED: ceFAZolin 3,000 MG in SODIUM CHLORIDE 0.9% IRRIGATIO 3,000 ML IRRIGATION ONE (11:58)
[2020-01-11] MEDS ORDERED: SODIUM CHLORIDE 0.9% 1,000 ML IV ONE (11:58)
--- NOTE | 2020-01-11 12:17 | P.GSHP ---
History of Present Illness H&P Date: 01/11/20 Chief Complaint: Laceration of bilateral arms and neck This a 24-year-old male with self-inflicted wounds. Patient states he isn't X- Acto knife and screwdriver to lacerate his bilateral arms and neck. Patient has large arm wound extending from his antecubital fossa to his wrist running longitudinally down both forearms. She also has a small superficial stab wound to the right neck. Patient is unable to give any significant medical history. He states he may be schizophrenic. Past Medical History Past Medical History: No Reported History History of Any Multi-Drug Resistant Organisms: None Reported Past Surgical History: Ear Surgery Additional Past Surgical History / Comment(s): When a small child date unknown. Past Anesthesia/Blood Transfusion Reactions: No Reported Reaction Past Psychological History: ADD/ADHD, Bipolar, Schizoaffective Disorder, Schizophrenia Smoking Status: Former smoker Past Alcohol Use History: None Reported Past Drug Use History: Cocaine Medications and Allergies Home Medications Medication Instructions Recorded Confirmed Type No Known Home Medications 01/11/20 01/11/20 History Allergies Allergy/AdvReac Type Severity Reaction Status Date / Time cat dander Allergy Itching Verified 01/11/20 10:56 dog dander Allergy Itching Verified 01/11/20 10:56 Surgical - Exam Vital Signs Temp Pulse Resp BP Pulse Ox 98.5 F 92 18 145/92 99 01/11/20 10:04 01/11/20 10:04 01/11/20 10:04 01/11/20 10:04 01/11/20 10:04 - General well developed, no distress - Eyes PERRL - ENT normal pinna - Neck no masses - Respiratory normal expansion - Cardiovascular Rhythm: regular - Abdomen Abdomen: soft, non tender - Integumentary Large skin incisions of bilateral forearms on the medial surface. Patient has divided skin and subcutaneous tissue down the muscle layer. There is some minimal venous oozing. - Neurologic Patient moves all fingers on command. Results - Labs 01/11/20 11:21 01/11/20 10:44 Abnormal Lab Results - Last 24 Hours (Table) 01/11/20 01/11/20 01/11/20 Range/Units 10:44 10:44 10:44 INR 1.2 H (<1.2) APTT 20.1 L (22.0-30.0) sec Sodium 135 L (137-145) mmol/L Plasma Lactic Acid Robert 0.6 L (0.7-2.0) mmol/L Total Bilirubin 1.4 H (0.2-1.3) mg/dL AST 60 H (17-59) U/L Total Creatine Kinase (55-170) U/L CK-MB (CK-2) (0.0-2.4) ng/mL 01/11/20 Range/Units 10:44 INR (<1.2) APTT (22.0-30.0) sec Sodium (137-145) mmol/L Plasma Lactic Acid Robert (0.7-2.0) mmol/L Total Bilirubin (0.2-1.3) mg/dL AST (17-59) U/L Total Creatine Kinase 1463 H* (55-170) U/L CK-MB (CK-2) 4.3 H (0.0-2.4) ng/mL Diabetes panel 01/11/20 Range/Units 10:44 Sodium 135 L (137-145) mmol/L Potassium 4.2 (3.5-5.1) mmol/L Chloride 102 (98-107) mmol/L Carbon Dioxide 22 (22-30) mmol/L BUN 11 (9-20) mg/dL Creatinine 0.84 (0.66-1.25) mg/dL Glucose 91 (74-99) mg/dL Calcium 9.2 (8.4-10.2) mg/dL AST 60 H (17-59) U/L ALT 31 (4-49) U/L Alkaline Phosphatase 59 (38-126) U/L Total Protein 7.2 (6.3-8.2) g/dL Albumin 4.3 (3.5-5.0) g/dL Calcium panel 01/11/20 Range/Units 10:44 Calcium 9.2 (8.4-10.2) mg/dL Albumin 4.3 (3.5-5.0) g/dL Pituitary panel 01/11/20 Range/Units 10:44 Sodium 135 L (137-145) mmol/L Potassium 4.2 (3.5-5.1) mmol/L Chloride 102 (98-107) mmol/L Carbon Dioxide 22 (22-30) mmol/L BUN 11 (9-20) mg/dL Creatinine 0.84 (0.66-1.25) mg/dL Glucose 91 (74-99) mg/dL Calcium 9.2 (8.4-10.2) mg/dL Adrenal panel 01/11/20 Range/Units 10:44 Sodium 135 L (137-145) mmol/L Potassium 4.2 (3.5-5.1) mmol/L Chloride 102 (98-107) mmol/L Carbon Dioxide 22 (22-30) mmol/L BUN 11 (9-20) mg/dL Creatinine 0.84 (0.66-1.25) mg/dL Glucose 91 (74-99) mg/dL Calcium 9.2 (8.4-10.2) mg/dL Total Bilirubin 1.4 H (0.2-1.3) mg/dL AST 60 H (17-59) U/L ALT 31 (4-49) U/L Alkaline Phosphatase 59 (38-126) U/L Total Protein 7.2 (6.3-8.2) g/dL Albumin 4.3 (3.5-5.0) g/dL Assessment and Plan Assessment: Large lacerations of bilateral forearms. Patient will undergo operative exploration and repair of lacerations of bilateral forearms and right neck
[2020-01-11] MEDS ORDERED: LACTATED RINGERS 1,000 ML IV ONE ×3 (12:19→12:55)
[2020-01-11] MEDS ORDERED: ONDANSETRON 4 MG/2 ML VIAL IVP PRN (12:19)
[2020-01-11] MEDS ORDERED: HYDROmorphone 0.5 MG/0.5 ML SYRINGE IVP PRN (12:19)
--- NOTE | 2020-01-11 12:19 | P.OP ---
Date of Procedure: 01/11/20 Preoperative Diagnosis: Laceration of bilateral forearms and laceration of right neck Postoperative Diagnosis: Same Procedure(s) Performed: Operative repair of complex bilateral forearm lacerations Operative of Simple neck laceration Anesthesia: CURT Surgeon: Xiang Kwon Estimated Blood Loss (ml): 50 Pathology: none sent Condition: stable Disposition: PACU Description of Procedure: The patient's arms and neck were prepped and draped usual fashion. The patient had a significant laceration of both right and left forearms. He has a superficial laceration of the right neck just above the collarbone. The left forearm lacerations repaired first. The wound was irrigated with Pulsavac. Several small venous oozing sites were quite good. The deep layers then closed 0 Vicryl. The skin was then closed with sofie. Next the right forearm laceration was repaired. The wound was irrigated with Pulsavac. A large cautery used to control any bleeding points. The skin was closed sofie. Next The neck was examined. The skin laceration. To be just through the dermis. There was no subcutaneous fat seen. The wound was stapled closed. Sterile dressing was applied. Patient top she will was sent to recovery in stable condition.
[2020-01-11] MEDS ORDERED: HYDROmorphone 0.5 MG/0.5 ML SYRINGE IVP ONE ×2 (13:15→14:00)
[2020-01-11 13:27] LABS: Appearance,Urine Clear (Clear); Bilirubin,Urine Negative (Negative); Blood,Urine Negative (Negative); Color,Urine Yellow; Glucose,Urine (UA) Negative (Negative); Ketones,Urine 3+ (Negative); Leukocyte Esterase,Urine Negative (Negative); Nitrite,Urine Negative (Negative); PH, Urine 5.5 (5.0-8.0); Protein,Urine Negative (Negative); Specific Gravity,Urine 1.015 (1.001-1.035); Urobilinogen,Urine <2.0 mg/dL (<2.0)
[2020-01-11 13:36] LABS: Amphetamine Screen,Urine Not Detected (NotDetected); Barbiturate Screen,Urine Not Detected (NotDetected); Benzodiazepines Screen,Urine Not Detected (NotDetected); Cocaine Screen,Urine Not Detected (NotDetected); Methadone Screen, Urine Not Detected (NotDetected); Opiate Screen,Urine Not Detected (NotDetected); Oxycodone Screen, Urine Not Detected (NotDetected); Phencyclidine Screen,Urine Not Detected (NotDetected); Tricyclic Antidepressant,Urine Not Detected (NotDetected); Urn Cannabinoid Scrn Detected (NotDetected)
[2020-01-11] MEDS: KETOROLAC 30 MG/ML 1 ML VIAL IVP SCH ×3 (15:57→23:52)
[2020-01-11] MEDS: PANTOPRAZOLE 40 MG TABLET PO SCH (16:59)
--- NOTE | 2020-01-11 18:47 | CONS ---
CONSULTATION DATE OF SERVICE: 01/11/2020 REASON FOR CONSULTATION: Advice regarding elevated CK and other medical issues requested by Dr. Kwon. HISTORY OF PRESENT ILLNESS: This 25-year-old gentleman with a past medical history of multiple medical problems, including history ADD, ADHD, bipolar, schizoaffective disorder, schizophrenia, not being followed by a primary physician in the outpatient setting, apparently was admitted with suicidal attempts. The patient had a laceration in both forearms and also on the right side of the neck, which were repaired by Surgery. The patient had a subclavian line on the right. The patient also had multiple lab abnormalities, including hyponatremia as well as rhabdomyolysis, also indicative of mildly elevated CK. There is no history of any fever, rigor or chills. No history of headache, loss of consciousness, seizures. Drug screen is positive for THC. Alcohol is negative. Three plus ketones noted in the urine. PAST MEDICAL HISTORY: History of ADD, ADHD, bipolar, schizoaffective disorder, schizophrenia. MEDICATIONS PRIOR TO ADMISSION: Unknown. ALLERGIES: CAT DANDER, DOG DANDER. FAMILY HISTORY: No history of heart disease or strokes in the family. SOCIAL HISTORY: Previous history of cocaine, THC. Previous history of smoking. REVIEW OF SYSTEMS: ENT: No diminished hearing. No diminished vision. Otherwise as mentioned earlier. CARDIOVASCULAR SYSTEM: No angina, palpitations. RESPIRATORY SYSTEM: No cough, hemoptysis. GI: No nausea, vomiting. : No dysuria or retention. NERVOUS SYSTEM: No numbness, weakness. ALLERGY/IMMUNOLOGY: No asthma, hayfever. MUSCULOSKELETAL: As mentioned earlier. HEMATOLOGY/ONCOLOGY: No history of anemia. ENDOCRINE: No history of diabetes, hypothyroidism. CONSTITUTIONAL: As mentioned earlier. DERMATOLOGY: As mentioned earlier. RHEUMATOLOGY: Negative. PSYCHIATRY: As mentioned earlier. PHYSICAL EXAMINATION: Patient alert and x3. Pulse is 77, blood pressure 142/87, respirations 16, temperature 98.4, pulse ox 98% on room air. HEENT: Conjunctivae normal. NECK: No jugular venous distention. CARDIOVASCULAR SYSTEM: S1, S2 muffled. RESPIRATORY SYSTEM: Breath sounds diminished at the bases. No rhonchi. No crackles. ABDOMEN: Soft, non-tender. LEGS: No edema. No swelling. NERVOUS SYSTEM: No focal deficit. EXAMINATION OF THE SKIN: Status post lacerations repaired on both forearms and right neck, also. Subclavian line present. LABS: Sodium 135, bilirubin 1.4, AST 60, and creatine kinase 1463. ASSESSMENT: 1. Multiple bilateral lacerations in the both forearms, status post repair. 2. Elevated creatine kinase with mild rhabdomyolysis. 3. Elevated bilirubin and AST with mild hepatitis. 4. Hyponatremia. 5. History of attention deficit disorder, attention deficit hyperactivity disorder. 6. Bipolar. 7. Status post recent suicidal attempt. 8. Schizoaffective disorder. 9. Schizophrenia. 10.Remote history of nicotine dependence. 11.History of tetrahydrocannabinol and cocaine per chart. RECOMMENDATIONS AND DISCUSSION: In this 24-year-old gentleman who presented with multiple complex medical issues, at this time I recommend to continue the current medications, continue symptomatic treatment. Otherwise, I would recommend continuing the IV fluids. Monitor CK closely and renal functions as well. Otherwise, psychiatric evaluation, inpatient psych evaluation. DVT prophylaxis. Will follow the patient closely with you. Thank you, Dr. Kwon, for letting us participate in the care of this patient. Symptomatic treatment also will be provided. LFTs could be serially monitored. MMODL / IJN: [id number] /
[2020-01-12] MEDS: HYDROcodone/APAP 5-325MG 1 EACH TAB PO PRN ×3 (00:42→20:41)
[2020-01-12] MEDS: LORazepam 1 MG TAB PO PRN ×2 (02:05→19:37)
[2020-01-12] MEDS: KETOROLAC 30 MG/ML 1 ML VIAL IVP SCH ×3 (05:36→17:39)
[2020-01-12 06:49] LABS: Basophils % (A) 0 %; Eosinophils # (A) 0.1 k/uL (0-0.7); Eosinophils % (A) 3 %; HCT 37.1 % (39.0-53.0); HGB 12.4 gm/dL (13.0-17.5); Lymphocytes # (A) 1.8 k/uL (1.0-4.8); Lymphocytes % (A) 37 %; MCH 30.6 pg (25.0-35.0); MCHC 33.4 g/dL (31.0-37.0); MCV 91.6 fL (80.0-100.0); Mean Platelet Volume 10.3; Monocytes # (A) 0.4 k/uL (0-1.0); Monocytes % (A) 8 %; Neutrophils # (A) 2.5 k/uL (1.3-7.7); Neutrophils % (A) 50 %; Platelet Count 138 k/uL (150-450); RBC 4.05 m/uL (4.30-5.90); WBC 4.9 k/uL (3.8-10.6)
[2020-01-12 07:51] LABS: ALT 20 U/L (4-49); AST 37 U/L (17-59); African American GFR (CKD) >90 (>60 ml/min/1.73 sqM); Albumin 2.8 g/dL (3.5-5.0); Alkaline Phosphatase 44 U/L (38-126); Anion Gap 5 mmol/L; Blood Urea Nitrogen 8 mg/dL (9-20); Calcium 8.1 mg/dL (8.4-10.2); Carbon Dioxide 22 mmol/L (22-30); Chloride 109 mmol/L (98-107); Creatine Kinase 734 U/L (55-170); Glucose 76 mg/dL (74-99); Non-African American GFR(CKD) >90 (>60 ml/min/1.73 sqM); Potassium 4.5 mmol/L (3.5-5.1); Sodium 136 mmol/L (137-145); Total Protein 5.2 g/dL (6.3-8.2)
[2020-01-12] MEDS: PANTOPRAZOLE 40 MG TABLET PO SCH (08:31)
[2020-01-12] MEDS: ENOXAPARIN 40 MG/0.4 ML SYRINGE SQ SCH (08:31)
--- NOTE | 2020-01-12 09:18 | P.CN ---
Psychiatric Consult - . Consult date: 01/12/20 Consult:: 01/12/20 08:54 IDENTIFYING DATA: This patient is a 24-year-old male who currently lives alone in apartment and collects Social Security disability and has no kids. HISTORY OF PRESENT ILLNESS: The patient presented to the hospital and was evaluated for depression after a suicide attempt at home. As per ER report patient used a screwdriver and an exact O knife to cut his neck and forearms. This was done at home 2 hours prior to coming the hospital. Patient allegedly stated that he had some legal problems which is what triggered it is for ER report and patient had elevated CK and UDS was positive for THC. Patient was taken into surgery yesterday for repair of the lacerations. Patient was seen today at the bedside with a sitter beside him. Patient claims that she has been feeling depressed for several weeks now and also endorsed anxiety. He states that it was a suicide attempt as he "didn't want to live anymore". He claims that his apartment has no insulation and it was very hot and he also states that he has been frustrated with life. He says that "I'm not getting out of it what I want". Patient was fairly vague and guarded during the interview about his reasons for suicide. He had a soft tone and poor hygiene. He claimed that he is the X-Acto knife on his forearms and cut repeatedly and then try to go after an artery in his neck. He claims that he called his dad on Facebook which then his dad called the EMS. He claims that "people can hear my thoughts out loud" and admitted to voices on and off however not at the current time. He states that he has had more sleep and has been off medications for years. At this time patient denies any suicidal or homical ideations, intent or plan. Patient denies any auditory, visual hallucinations and denies any paranoia or delusions. Patients admits to using and marijuana less than 1 g per day and claims that he smokes occasional cigarettes. PAST PSYCHIATRIC HISTORY: He states that he has a diagnosis of schizoaffective disorder and has previously been on several antipsychotic medications including Haldol and Zyprexa. Patient was lost admitted to the mental health unit at [facility] in 09/2017 and last admitted to a mental health hospital in [place] in April 2019. He states that he does not have an outpatient psychiatrist and claims to have 2-3 overdoses and suicide attempts in the past. PAST MEDICAL HISTORY: Asthma. ALLERGIES: as per EMR. CHEMICAL DEPENDENCY HISTORY: as per HPI. FAMILY PSYCHIATRIC/SUBSTANCE USE HISTORY: He states that his grandmother and uncle have schizophrenia SOCIAL HISTORY: He states that he was born and raised in [place] and then moved to [place]. 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 He currently lives alone in an apartment has no kids and collects disability. MENTAL STATUS EXAM: General Appearance: Patient appears to be stated age is overweight, alert, guarded. Patient appears to have poor hygiene and grooming wearing hospital gown with poor eye contact. Behavior: Patient is calmly lying in bed without any agitated behavior. Guarded/evasive. Speech: Patient's speech is fluent and nonpressured. Soft tone. Mood/Affect: Patient reports their mood is "depressed", affect is congruent Suicidality/Homicidality: Patient denies having any suicidal or homicidal ideation intent or plan. Perceptions: Patient denies any visual hallucinations and denies any auditory hallucinations . Admits to thought broadcasting. Though content/process: There is no evidence of any delusional thought content and thought process is linear and goal-directed. Vague and guarded. Memory and concentration: AOX3, grossly intact for the purposes of this session. Can spell "WORLD" backwards Judgment and insight: poor/impulsive IMPRESSIONS: Schizoaffective disorder, depressive type Anxiety disorder unspecified Cannabis use disorder PLAN: -At this time patient DOES meet criteria for inpatient psychiatric admission. -Would recommend the following medication changes/additions: We'll start trazodone 50 mg daily at bedtime for sleep/mood, we'll also start Abilify 2.5 mg daily for mood stabilization/psychosis with plan to transition patient on to Abilify Maintenna long-acting injection. -Continue 1:1 sitter for safety -Cannot leave AMA at this time. Patient will need a petition and certification if attempting to leave AMA. -When medically stable, repeat creatinine kinase and CBC with differential along with basic metabolic panel and stable vital signs, patient is eligible for transfer to a psych bed when available. -Psychiatry will sign off at this point, please contact with any questions. 01/12/20 09:10
--- NOTE | 2020-01-12 09:35 | P.PN ---
Subjective Progress Note Date: 01/12/20 CHIEF COMPLAINT: Suicide attempt HISTORY OF PRESENT ILLNESS: Patient is status post operative repair of complex bilateral forearm lacerations and repair of simple neck laceration with Dr. Kwon. Postop day #1. Patient examined at the bedside. exchange engineer pr esent. He reports is pain is tolerable at this time. Tolerating diet. No nausea or vomiting. Vital signs are stable. He is afebrile. WBC 4.9. Hemoglobin 12.4. CK 734. PHYSICAL EXAM: VITAL SIGNS: Reviewed. GENERAL: Well-developed in no acute distress. HEENT: No sclera icterus. Extraocular movements grossly intact. Moist buccal mucosa. Head is atraumatic, normocephalic. ABDOMEN: Soft. Nondistended. Nontender. NEUROLOGIC: Alert and oriented. Cranial nerves II through XII grossly intact. SKIN: Dressings to bilateral arms and neck clean dry intact. Patient with full ROM and sensation. ASSESSMENT: 1. Self-inflicted laceration of bilateral forearms and right neck, status post repair of complex bilateral forearm lacerations and repair of simple neck laceration PLAN: -Advance diet -Monitor labs -Continue vice president safety. Psychiatry following -Continue local wound care -Medical management per Dr. Cobian -Dr. Kwon to re-evaluate patient today Nurse practitioner note has been reviewed by physician. Signing provider agrees with the documented findings, assessment, and plan of care. Objective - Vital Signs Vital signs: Vital Signs Temp 98.4 F 01/11/20 23:00 Pulse 87 01/11/20 23:00 Resp 18 01/12/20 00:00 BP 151/87 01/11/20 23:00 Pulse Ox 98 01/11/20 23:00 Intake & Output 01/11/20 01/12/20 01/12/20 18:59 06:59 18:59 Intake Total 1301 1820 Output Total 50 Balance 1251 1820 Weight 76.3 kg Intake: IV 1301 Intake, IV Titration 1100 Amount Sodium Chloride 0.9% 1, 1100 000 ml @ 125 mls/hr IV . Q8H [facility] Rx#:[id number] Oral 720 Output: Estimated Blood Loss 50 Other: Voiding Method Urinal # Voids 2 - Labs CBC & Chem 7: 01/12/20 06:15 01/12/20 06:15 Labs: Abnormal Lab Results - Last 24 Hours (Table) 01/11/20 01/11/20 01/11/20 Range/Units 10:44 10:44 10:44 RBC (4.30-5.90) m/uL Hgb (13.0-17.5) gm/dL Hct (39.0-53.0) % Plt Count (150-450) k/uL INR 1.2 H (<1.2) APTT 20.1 L (22.0-30.0) sec Sodium 135 L (137-145) mmol/L Chloride (98-107) mmol/L BUN (9-20) mg/dL Plasma Lactic Acid Robert 0.6 L (0.7-2.0) mmol/L Calcium (8.4-10.2) mg/dL Total Bilirubin 1.4 H (0.2-1.3) mg/dL AST 60 H (17-59) U/L Creatine Kinase (55-170) U/L Total Creatine Kinase (55-170) U/L CK-MB (CK-2) (0.0-2.4) ng/mL Total Protein (6.3-8.2) g/dL Albumin (3.5-5.0) g/dL Urine Ketones (Negative) U Marijuana (THC) Screen (NotDetected) 01/11/20 01/11/20 01/12/20 Range/Units 10:44 12:52 06:15 RBC (4.30-5.90) m/uL Hgb (13.0-17.5) gm/dL Hct (39.0-53.0) % Plt Count (150-450) k/uL INR (<1.2) APTT (22.0-30.0) sec Sodium 136 L (137-145) mmol/L Chloride 109 H (98-107) mmol/L BUN 8 L (9-20) mg/dL Plasma Lactic Acid Robert (0.7-2.0) mmol/L Calcium 8.1 L (8.4-10.2) mg/dL Total Bilirubin (0.2-1.3) mg/dL AST (17-59) U/L Creatine Kinase 734 H (55-170) U/L Total Creatine Kinase 1463 H* (55-170) U/L CK-MB (CK-2) 4.3 H (0.0-2.4) ng/mL Total Protein 5.2 L (6.3-8.2) g/dL Albumin 2.8 L (3.5-5.0) g/dL Urine Ketones 3+ H (Negative) U Marijuana (THC) Screen Detected H (NotDetected) 01/12/20 Range/Units 06:15 RBC 4.05 L (4.30-5.90) m/uL Hgb 12.4 L (13.0-17.5) gm/dL Hct 37.1 L (39.0-53.0) % Plt Count 138 L (150-450) k/uL INR (<1.2) APTT (22.0-30.0) sec Sodium (137-145) mmol/L Chloride (98-107) mmol/L BUN (9-20) mg/dL Plasma Lactic Acid Robert (0.7-2.0) mmol/L Calcium (8.4-10.2) mg/dL Total Bilirubin (0.2-1.3) mg/dL AST (17-59) U/L Creatine Kinase (55-170) U/L Total Creatine Kinase (55-170) U/L CK-MB (CK-2) (0.0-2.4) ng/mL Total Protein (6.3-8.2) g/dL Albumin (3.5-5.0) g/dL Urine Ketones (Negative) U Marijuana (THC) Screen (NotDetected)
[2020-01-12] MEDS: ARIPiprazole 5 MG TAB PO SCH (13:14)
[2020-01-12] MEDS: SODIUM CHLORIDE 0.9% 1,000 ML IV SCH ×2 (13:16→17:44)
--- NOTE | 2020-01-12 14:54 | P.PN ---
Subjective Progress Note Date: 01/12/20 Principal diagnosis: The 24-year-old male who was recently admitted for suicide attempts with large lacerations noted to both forearms in the right side of the neck that was repaired by surgery. Patient has been seen and evaluated by psychiatry and awaiting for medical stabilization and clearance from surgery for inpatient psychiatric stay. Patient's CK was mildly elevated at 734 and will remain on IV fluids at this time. Diet has been advanced to regular diet. No reports of chest pain, shortness of breath, or palpitations. And is afebrile. No reports of nausea or vomiting and is tolerating diet. Patient states he has some mild swelling noted to bilateral forearms that is traveling to his hands. Mauricio wraps have been applied to bilateral forearms status post surgery repair of the lacerations. A gauze is noted on the neck that is dry and intact. Patient does have a 1:1 sitter at the bedside and to continue. Currently no reports of suicidal ideation although patient has a very flat affect with soft speech noted. Patient has been getting up to the bathroom and walking in the room with no difficulties. Objective - Vital Signs Vital signs: Vital Signs Temp 98 F 01/12/20 12:12 Pulse 89 01/12/20 12:12 Resp 20 01/12/20 12:12 BP 146/86 01/12/20 12:12 Pulse Ox 94 L 01/12/20 12:12 Intake & Output 01/11/20 01/12/20 01/12/20 18:59 06:59 18:59 Intake Total 1301 1820 Output Total 50 Balance 1251 1820 Weight 76.3 kg Intake: IV 1301 Intake, IV Titration 1100 Amount Sodium Chloride 0.9% 1, 1100 000 ml @ 125 mls/hr IV . Q8H [facility] Rx#:[id number] Oral 720 Output: Estimated Blood Loss 50 Other: Voiding Method Urinal Urinal # Voids 2 - Exam Gen: This is a 24-year-old male sitting up in bed, awake, alert and oriented 3, well-developed, well-nourished. HEENT: Head is atraumatic, normocephalic. Pupils equal, round. Sclerae is anicteric. NECK: Supple. No JVD. No lymphadenopathy. No thyromegaly. Right-sided gauze noted to a superficial laceration repair that is dry and intact. LUNGS: Clear to auscultation. No wheezes or rhonchi. No intercostal retractions. HEART: Regular rate and rhythm. No murmur. ABDOMEN: Soft. Bowel sounds are present. No masses. No tenderness. EXTREMITIES: No pedal edema. No calf tenderness. Bilateral upper extremities noted to have Mauricio wraps applied to both forearms status post surgical repair of self-inflicted lacerations NEUROLOGICAL: Patient is awake, alert and oriented x3. Cranial nerves 2 through 12 are grossly intact. - Labs CBC & Chem 7: 01/12/20 06:15 01/12/20 06:15 Labs: Abnormal Lab Results - Last 24 Hours (Table) 01/12/20 01/12/20 Range/Units 06:15 06:15 RBC 4.05 L (4.30-5.90) m/uL Hgb 12.4 L (13.0-17.5) gm/dL Hct 37.1 L (39.0-53.0) % Plt Count 138 L (150-450) k/uL Sodium 136 L (137-145) mmol/L Chloride 109 H (98-107) mmol/L BUN 8 L (9-20) mg/dL Calcium 8.1 L (8.4-10.2) mg/dL Creatine Kinase 734 H (55-170) U/L Total Protein 5.2 L (6.3-8.2) g/dL Albumin 2.8 L (3.5-5.0) g/dL Assessment and Plan Assessment: Multiple bilateral lacerations of both forearms, status post repair Elevated creatinine kinase with mild rhabdomyolysis Elevated bilirubin and AST with mild hepatitis Hyponatremia History of attention deficit disorder, attention deficit hyperactivity disorder Bipolar Status post recent suicidal attempt Schizoaffective disorder Schizophrenia remote history of nicotine dependence History of THC and cocaine per chart Plan: Continue with one-on-one sitter for suicidal precautions. Psychiatry following. We'll continue to follow along with surgery. Will repeat a.m. labs. Patient to continue with IV fluids at this time. Further recommendations to follow.
[2020-01-12] MEDS: traZODone HCL 50 MG TAB PO SCH (21:43)
[2020-01-13] MEDS: KETOROLAC 30 MG/ML 1 ML VIAL IVP SCH ×2 (01:10→05:51)
[2020-01-13] MEDS: SODIUM CHLORIDE 0.9% 1,000 ML IV SCH ×3 (01:11→17:03)
[2020-01-13 07:26] LABS: Basophils % (A) 0 %; Eosinophils # (A) 0.3 k/uL (0-0.7); Eosinophils % (A) 8 %; HGB 12.5 gm/dL (13.0-17.5); Lymphocytes # (A) 1.4 k/uL (1.0-4.8); Lymphocytes % (A) 35 %; MCH 30.6 pg (25.0-35.0); MCHC 32.9 g/dL (31.0-37.0); MCV 93.2 fL (80.0-100.0); Mean Platelet Volume 8.7; Monocytes # (A) 0.2 k/uL (0-1.0); Monocytes % (A) 6 %; Neutrophils # (A) 1.9 k/uL (1.3-7.7); Neutrophils % (A) 49 %; Platelet Count 130 k/uL (150-450); RBC 4.07 m/uL (4.30-5.90); WBC 3.9 k/uL (3.8-10.6)
[2020-01-13 07:40] LABS: African American GFR (CKD) >90 (>60 ml/min/1.73 sqM); Anion Gap 4 mmol/L; Blood Urea Nitrogen 7 mg/dL (9-20); Carbon Dioxide 25 mmol/L (22-30); Chloride 110 mmol/L (98-107); Glucose 100 mg/dL (74-99); Non-African American GFR(CKD) >90 (>60 ml/min/1.73 sqM); Potassium 3.9 mmol/L (3.5-5.1); Sodium 139 mmol/L (137-145)
[2020-01-13] MEDS: ENOXAPARIN 40 MG/0.4 ML SYRINGE SQ SCH (08:23)
[2020-01-13] MEDS: ARIPiprazole 5 MG TAB PO SCH (08:23)
[2020-01-13] MEDS: PANTOPRAZOLE 40 MG TABLET PO SCH (08:23)
[2020-01-13 08:32] LABS: Creatine Kinase 424 U/L (55-170)
[2020-01-13] MEDS: LORazepam 1 MG TAB PO PRN (11:31)
--- NOTE | 2020-01-13 13:08 | P.PN ---
Subjective Progress Note Date: 01/13/20 CHIEF COMPLAINT: Suicide attempt HISTORY OF PRESENT ILLNESS: Patient is status post operative repair of complex bilateral forearm lacerations and repair of simple neck laceration with Dr. Kwon. Postop day #2. Patient examined at the bedside. assistant executive housekeeper pr esent. He reports is pain is tolerable at this time. Tolerating diet. No nausea or vomiting. Vital signs are stable. He is afebrile. PHYSICAL EXAM: VITAL SIGNS: Reviewed. GENERAL: Well-developed in no acute distress. HEENT: No sclera icterus. Extraocular movements grossly intact. Moist buccal mucosa. Head is atraumatic, normocephalic. ABDOMEN: Soft. Nondistended. Nontender. NEUROLOGIC: Alert and oriented. Cranial nerves II through XII grossly intact. SKIN: Dressings to bilateral arms and neck clean dry intact. Patient with full ROM and sensation. ASSESSMENT: 1. Self-inflicted laceration of bilateral forearms and right neck, status post repair of complex bilateral forearm lacerations and repair of simple neck laceration PLAN: -Continue diet -Monitor labs -Continue public safety director. Psychiatry following -Continue local wound care -Patient may be transferred to mental health unit if bed available today Nurse practitioner note has been reviewed by physician. Signing provider agrees with the documented findings, assessment, and plan of care. Objective - Vital Signs Vital signs: Vital Signs Temp 98.1 F 01/13/20 11:27 Pulse 71 01/13/20 11:27 Resp 20 01/13/20 11:27 BP 134/88 01/13/20 11:27 Pulse Ox 97 01/13/20 11:27 Intake & Output 01/12/20 01/13/20 01/13/20 18:59 06:59 18:59 Intake Total 1979 176 Balance 1979 1765 Intake: Intake, IV Titration 1000 1175 Amount Lactated Ringers 1,000 ml 1000 @ 125 mls/hr IV .Q8H [facility] Rx#:[id number] Sodium Chloride 0.9% 1, 1125 000 ml @ 125 mls/hr IV . Q8H [facility] Rx#:[id number] ceFAZolin 1,000 mg In 50 Sodium Chloride 0.9% 50 ml @ 100 mls/hr IVPB Q6HR [facility] Rx#:[id number] Oral 980 590 Other: Voiding Method Urinal Toilet Toilet # Voids 3 1 - Labs CBC & Chem 7: 01/13/20 07:10 01/13/20 07:10 Labs: Abnormal Lab Results - Last 24 Hours (Table) 01/13/20 01/13/20 Range/Units 07:10 07:10 RBC 4.07 L (4.30-5.90) m/uL Hgb 12.5 L (13.0-17.5) gm/dL Hct 38.0 L (39.0-53.0) % Plt Count 130 L (150-450) k/uL Chloride 110 H (98-107) mmol/L BUN 7 L (9-20) mg/dL Glucose 100 H (74-99) mg/dL Calcium 8.0 L (8.4-10.2) mg/dL Creatine Kinase 424 H (55-170) U/L
--- NOTE | 2020-01-13 13:42 | P.PN ---
Subjective Progress Note Date: 01/13/20 Principal diagnosis: The 24-year-old male who was recently admitted for suicide attempts with large lacerations noted to both forearms in the right side of the neck that was repaired by surgery. Patient has been seen and evaluated by psychiatry and awaiting for medical stabilization and clearance from surgery for inpatient psychiatric stay. Patient's CK was mildly elevated at 734 and will remain on IV fluids at this time. Diet has been advanced to regular diet. No reports of chest pain, shortness of breath, or palpitations. And is afebrile. No reports of nausea or vomiting and is tolerating diet. Patient states he has some mild swelling noted to bilateral forearms that is traveling to his hands. Mauricio wraps have been applied to bilateral forearms status post surgery repair of the lacerations. A gauze is noted on the neck that is dry and intact. Patient does have a 1:1 sitter at the bedside and to continue. Currently no reports of suicidal ideation although patient has a very flat affect with soft speech noted. Patient has been getting up to the bathroom and walking in the room with no difficulties. 01/13/2020 Patient is seen in follow-up and appears to be in no acute distress. Continue with one-to-one sitter for safety and suicide precautions. Patient awaiting a bed to become available for inpatient psychiatric care. CK levels trending down and is 424 today. CBC within normal limits. Vital signs of been stable. Patient is eating and drinking regular diet with no reports of nausea or vomiting. Patient denies any chest pain, shortness of breath, or palpitations. Patient is afebrile. Bilateral arm swelling has minimized with Mauricio wraps r emaining. Will continue to follow along with surgery. Objective - Vital Signs Vital signs: Vital Signs Temp 98.1 F 01/13/20 11:27 Pulse 71 01/13/20 11:27 Resp 20 01/13/20 11:27 BP 134/88 01/13/20 11:27 Pulse Ox 97 01/13/20 11:27 Intake & Output 01/12/20 01/13/20 01/13/20 18:59 06:59 18:59 Intake Total 1979 1764 1919 Balance 1979 1764 1919 Intake: Intake, IV Titration 1000 1175 1200 Amount Lactated Ringers 1,000 ml 1000 @ 125 mls/hr IV .Q8H [facility] Rx#:[id number] Sodium Chloride 0.9% 1, 1125 1200 000 ml @ 125 mls/hr IV . Q8H [facility] Rx#:[id number] ceFAZolin 1,000 mg In 50 Sodium Chloride 0.9% 50 ml @ 100 mls/hr IVPB Q6HR [facility] Rx#:[id number] Oral [phone] Other: Voiding Method Urinal Toilet Toilet # Voids 3 1 4 - Exam Gen: This is a 24-year-old male sitting up in bed, awake, alert and oriented 3, well-developed, well-nourished. HEENT: Head is atraumatic, normocephalic. Pupils equal, round. Sclerae is anicteric. NECK: Supple. No JVD. No lymphadenopathy. No thyromegaly. Right-sided gauze noted to a superficial laceration repair that is dry and intact. LUNGS: Clear to auscultation. No wheezes or rhonchi. No intercostal retractions. HEART: Regular rate and rhythm. No murmur. ABDOMEN: Soft. Bowel sounds are present. No masses. No tenderness. EXTREMITIES: No pedal edema. No calf tenderness. Bilateral upper extremities noted to have Mauricio wraps applied to both forearms status post surgical repair of self-inflicted lacerations NEUROLOGICAL: Patient is awake, alert and oriented x3. Cranial nerves 2 through 12 are grossly intact. - Labs CBC & Chem 7: 01/13/20 07:10 01/13/20 07:10 Labs: Abnormal Lab Results - Last 24 Hours (Table) 01/13/20 01/13/20 Range/Units 07:10 07:10 RBC 4.07 L (4.30-5.90) m/uL Hgb 12.5 L (13.0-17.5) gm/dL Hct 38.0 L (39.0-53.0) % Plt Count 130 L (150-450) k/uL Chloride 110 H (98-107) mmol/L BUN 7 L (9-20) mg/dL Glucose 100 H (74-99) mg/dL Calcium 8.0 L (8.4-10.2) mg/dL Creatine Kinase 424 H (55-170) U/L Assessment and Plan Assessment: Multiple bilateral lacerations of both forearms, status post repair Elevated creatinine kinase with mild rhabdomyolysis, CK trending down and is 424 today Elevated bilirubin and AST with mild hepatitis Hyponatremia, improved History of attention deficit disorder, attention deficit hyperactivity disorder Bipolar Status post recent suicidal attempt Schizoaffective disorder Schizophrenia remote history of nicotine dependence History of THC and cocaine per chart Plan: Continue with one-on-one sitter for suicidal precautions. Psychiatry following. We'll continue to follow along with surgery. Will repeat a.m. labs. Awaiting for a bed to be available on the inpatient psychiatric unit. Further recommendations to follow.
[2020-01-13] MEDS: traZODone HCL 50 MG TAB PO SCH (20:44)
[2020-01-14] MEDS: SODIUM CHLORIDE 0.9% 1,000 ML IV SCH ×2 (03:16→11:17)
[2020-01-14] MEDS: LORazepam 1 MG TAB PO PRN ×2 (05:11→16:11)
[2020-01-14] MEDS: ENOXAPARIN 40 MG/0.4 ML SYRINGE SQ SCH (08:38)
[2020-01-14] MEDS: ARIPiprazole 5 MG TAB PO SCH (08:39)
[2020-01-14] MEDS: IBUPROFEN 600 MG TAB PO PRN (08:40)
[2020-01-14] MEDS: PANTOPRAZOLE 40 MG TABLET PO SCH (08:40)
--- NOTE | 2020-01-14 13:00 | P.PN ---
Subjective Progress Note Date: 01/14/20 CHIEF COMPLAINT: Suicide attempt HISTORY OF PRESENT ILLNESS: Patient is status post operative repair of complex bilateral forearm lacerations and repair of simple neck laceration with Dr. Kwon. Postop day #3. Patient examined at the bedside. franchise specialist pr esent. He reports is pain is tolerable at this time. Tolerating diet. No nausea or vomiting. Vital signs are stable. He is afebrile. PHYSICAL EXAM: VITAL SIGNS: Reviewed. GENERAL: Well-developed in no acute distress. HEENT: No sclera icterus. Extraocular movements grossly intact. Moist buccal mucosa. Head is atraumatic, normocephalic. ABDOMEN: Soft. Nondistended. Nontender. NEUROLOGIC: Alert and oriented. Cranial nerves II through XII grossly intact. SKIN: Dressings to bilateral arms and neck clean dry intact. Patient with full ROM and sensation. ASSESSMENT: 1. Self-inflicted laceration of bilateral forearms and right neck, status post repair of complex bilateral forearm lacerations and repair of simple neck laceration PLAN: -Continue diet -Monitor labs -Continue safety tech. Psychiatry following -Continue local wound care daily with telfa pads, 4x4, and christiane wraps -Discontinue narcotics -Change abx to oral -Patient may be transferred to mental health unit if bed available today Nurse practitioner note has been reviewed by physician. Signing provider agrees with the documented findings, assessment, and plan of care. Objective - Vital Signs Vital signs: Vital Signs Temp 98.0 F 01/14/20 05:06 Pulse 103 H 01/14/20 05:06 Resp 12 01/14/20 05:06 BP 145/93 01/14/20 05:06 Pulse Ox 98 01/14/20 05:06 Intake & Output 01/13/20 01/14/20 01/14/20 18:59 06:59 18:59 Intake Total 2280 Balance 2280 Intake: Intake, IV Titration 1200 Amount Sodium Chloride 0.9% 1, 1200 000 ml @ 125 mls/hr IV . Q8H [facility] Rx#:[id number] Oral 1080 Other: Voiding Method Toilet Toilet # Voids 4 1 - Labs CBC & Chem 7: 01/13/20 07:10 01/13/20 07:10 Labs: Abnormal Lab Results - Last 24 Hours (Table) 01/14/20 Range/Units 08:03 Creatine Kinase 212 H (55-170) U/L
--- NOTE | 2020-01-14 13:50 | P.PN ---
Subjective Progress Note Date: 01/14/20 Principal diagnosis: The 24-year-old male who was recently admitted for suicide attempts with large lacerations noted to both forearms in the right side of the neck that was repaired by surgery. Patient has been seen and evaluated by psychiatry and awaiting for medical stabilization and clearance from surgery for inpatient psychiatric stay. Patient's CK was mildly elevated at 734 and will remain on IV fluids at this time. Diet has been advanced to regular diet. No reports of chest pain, shortness of breath, or palpitations. And is afebrile. No reports of nausea or vomiting and is tolerating diet. Patient states he has some mild swelling noted to bilateral forearms that is traveling to his hands. Mauricio wraps have been applied to bilateral forearms status post surgery repair of the lacerations. A gauze is noted on the neck that is dry and intact. Patient does have a 1:1 sitter at the bedside and to continue. Currently no reports of suicidal ideation although patient has a very flat affect with soft speech noted. Patient has been getting up to the bathroom and walking in the room with no difficulties. 01/13/2020 Patient is seen in follow-up and appears to be in no acute distress. Continue with one-to-one sitter for safety and suicide precautions. Patient awaiting a bed to become available for inpatient psychiatric care. CK levels trending down and is 424 today. CBC within normal limits. Vital signs of been stable. Patient is eating and drinking regular diet with no reports of nausea or vomiting. Patient denies any chest pain, shortness of breath, or palpitations. Patient is afebrile. Bilateral arm swelling has minimized with Mauricio wraps r emaining. Will continue to follow along with surgery. 01/14/2020 Patient is seen in follow-up today with no acute overnight issues. 1:1 sitter maintained for suicide and safety precautions while awaiting a bed to become available on the inpatient psychiatric unit. CK levels continue to trend down and is 212 today. Patient is tolerating diet with no reports of nausea or vomiting noted. No reports of chest pain, shortness of breath, or palpitations. Patient is afebrile. Mauricio wraps to bilateral forearms noted and are dry and intact. Patient is stable from medical standpoint for transfer to inpatient psychiatric facility once a bed becomes available. Objective - Vital Signs Vital signs: Vital Signs Temp 99 F 01/14/20 13:00 Pulse 79 01/14/20 13:00 Resp 18 01/14/20 13:00 BP 130/79 01/14/20 13:00 Pulse Ox 98 01/14/20 13:00 Intake & Output 01/13/20 01/14/20 01/14/20 18:59 06:59 18:59 Intake Total 2280 100 Balance 2280 100 Intake: Intake, IV Titration 1200 100 Amount Sodium Chloride 0.9% 1, 1200 000 ml @ 125 mls/hr IV . Q8H [facility] Rx#:[id number] ceFAZolin 1,000 mg In 100 Sodium Chloride 0.9% 50 ml @ 100 mls/hr IVPB Q6HR [facility] Rx#:[id number] Oral 1080 Other: Voiding Method Toilet Toilet Toilet # Voids 4 1 - Exam Gen: This is a 24-year-old male sitting up in bed, awake, alert and oriented 3, well-developed, well-nourished. HEENT: Head is atraumatic, normocephalic. Pupils equal, round. Sclerae is anicteric. NECK: Supple. No JVD. No lymphadenopathy. No thyromegaly. Right-sided gauze noted to a superficial laceration repair that is dry and intact. LUNGS: Clear to auscultation. No wheezes or rhonchi. No intercostal retractions. HEART: Regular rate and rhythm. No murmur. ABDOMEN: Soft. Bowel sounds are present. No masses. No tenderness. EXTREMITIES: No pedal edema. No calf tenderness. Bilateral upper extremities noted to have Mauricio wraps applied to both forearms status post surgical repair of self-inflicted lacerations NEUROLOGICAL: Patient is awake, alert and oriented x3. Cranial nerves 2 through 12 are grossly intact. - Labs CBC & Chem 7: 01/13/20 07:10 01/13/20 07:10 Labs: Abnormal Lab Results - Last 24 Hours (Table) 01/14/20 Range/Units 08:03 Creatine Kinase 212 H (55-170) U/L Assessment and Plan Assessment: Multiple bilateral lacerations of both forearms, status post repair Elevated creatinine kinase with mild rhabdomyolysis, CK trending down and is 212 today Elevated bilirubin and AST with mild hepatitis Hyponatremia, improved History of attention deficit disorder, attention deficit hyperactivity disorder Bipolar Status post recent suicidal attempt Schizoaffective disorder Schizophrenia remote history of nicotine dependence History of THC and cocaine per chart Plan: Continue with one-on-one sitter for suicidal precautions. Psychiatry following. Will continue to follow along with surgery. Awaiting for a bed to be available on the inpatient psychiatric unit. Further recommendations to follow.
[2020-01-14] MEDS: CEPHALEXIN 500 MG CAP PO SCH (20:51)
[2020-01-14] MEDS: traZODone HCL 50 MG TAB PO SCH (20:51)
[2020-01-15] MEDS: IBUPROFEN 600 MG TAB PO PRN (07:15)
[2020-01-15] MEDS: CEPHALEXIN 500 MG CAP PO SCH (07:16)
[2020-01-15] MEDS: PANTOPRAZOLE 40 MG TABLET PO SCH (07:16)
[2020-01-15] MEDS: ENOXAPARIN 40 MG/0.4 ML SYRINGE SQ SCH (07:16)
[2020-01-15] MEDS: ARIPiprazole 5 MG TAB PO SCH (07:16)
[2020-01-15] MEDS: LORazepam 1 MG TAB PO PRN (07:16)
--- NOTE | 2020-01-15 10:28 | P.PN ---
Progress Note - Text Progress Note Date: 01/15/20 The patient remained stable. He has minimal complaints of pain on his forearm lacerations. On exam his wounds are clean. It. Patient will have daily dressing changes. He is stable fit for transfer to the [facility] floor
--- NOTE | 2020-01-15 13:00 | P.PN ---
Subjective 24-year-old male who was recently admitted for suicide attempts with large lacerations noted to both forearms in the right side of the neck that was repaired by surgery. Patient has been seen and evaluated by psychiatry and awaiting for medical stabilization and clearance from surgery for inpatient psychiatric stay. Patient's CK was mildly elevated at 734 and will remain on IV fluids at this time. Diet has been advanced to regular diet. No reports of chest pain, shortness of breath, or palpitations. And is afebrile. No reports of nausea or vomiting and is tolerating diet. Patient states he has some mild swelling noted to bilateral forearms that is traveling to his hands. Mauricio wraps have been applied to bilateral forearms status post surgery repair of the lacerations. A gauze is noted on the neck that is dry and intact. Patient does have a 1:1 sitter at the bedside and to continue. Currently no reports of suicidal ideation although patient has a very flat affect with soft speech noted. Patient has been getting up to the bathroom and walking in the room with no difficulties. 01/13/2020 Patient is seen in follow-up and appears to be in no acute distress. Continue with one-to-one sitter for safety and suicide precautions. Patient awaiting a bed to become available for inpatient psychiatric care. CK levels trending down and is 424 today. CBC within normal limits. Vital signs of been stable. Patient is eating and drinking regular diet with no reports of nausea or vomiting. Patient denies any chest pain, shortness of breath, or palpitations. Patient is afebrile. Bilateral arm swelling has minimized with Mauricio wraps remaining. Will continue to follow along with surgery. 01/14/2020 Patient is seen in follow-up today with no acute overnight issues. 1:1 sitter maintained for suicide and safety precautions while awaiting a bed to become available on the inpatient psychiatric unit. CK levels continue to trend down and is 212 today. Patient is tolerating diet with no reports of nausea or vomiting noted. No reports of chest pain, shortness of breath, or palpitations. Patient is afebrile. Mauricio wraps to bilateral forearms noted and are dry and intact. Patient is stable from medical standpoint for transfer to inpatient psychiatric facility once a bed becomes available. ] 01/15/2020 Patient is medically stable to discharge to psychiatric floor I did do the medication reconciliation for discharge as well as a cert. for admission to psychiatric floor Constitutional: Denied any fatigue denied any fever. Cardio vascular: denied any chest pain, palpitations Gastrointestinal denied any nausea vomiting Pulmonary: Denied any shortness of breath cough Neurologic denied any new focal deficits All inpatient medications were reviewed and appropriate changes in these medications as dictated in the interval history and assessment and plan. Objective - Vital Signs Vital signs: Vital Signs Temp 98.0 F 01/15/20 05:44 Pulse 81 01/15/20 05:44 Resp 16 01/15/20 05:44 BP 114/73 01/15/20 05:44 Pulse Ox 96 01/15/20 05:44 Intake & Output 01/14/20 01/15/20 01/15/20 18:59 06:59 18:59 Intake Total 100 Balance 100 Intake: Intake, IV Titration 100 Amount ceFAZolin 1,000 mg In 100 Sodium Chloride 0.9% 50 ml @ 100 mls/hr IVPB Q6HR [facility] Rx#:[id number] Other: Voiding Method Toilet # Voids 1 1 - Exam Gen: This is a 24-year-old male sitting up in bed, awake, alert and oriented 3, well-developed, well-nourished. HEENT: Head is atraumatic, normocephalic. Pupils equal, round. Sclerae is anicteric. NECK: Supple. No JVD. No lymphadenopathy. No thyromegaly. Right-sided gauze noted to a superficial laceration repair that is dry and intact. LUNGS: Clear to auscultation. No wheezes or rhonchi. No intercostal retractions. HEART: Regular rate and rhythm. No murmur. ABDOMEN: Soft. Bowel sounds are present. No masses. No tenderness. EXTREMITIES: No pedal edema. No calf tenderness. Bilateral upper extremities noted to have Mauricio wraps applied to both forearms status post surgical repair of self-inflicted lacerations NEUROLOGICAL: Patient is awake, alert and oriented x3. Cranial nerves 2 through 12 are grossly intact. - Labs CBC & Chem 7: 01/13/20 07:10 01/13/20 07:10 Assessment and Plan Plan: Multiple bilateral lacerations of both forearms, status post repair Elevated creatinine kinase with mild rhabdomyolysis, CK trending down and is 212 today Elevated bilirubin and AST with mild hepatitis, nonspecific resolved Hyponatremia, improved History of attention deficit disorder, attention deficit hyperactivity disorder Bipolar Status post recent suicidal attempt Schizophrenia History of THC and cocaine per chart Plan: patient is being discharged to psychiatric floor for did do the medication reconciliation at, antibiotics will be prescribed for 4 days
[2020-01-15 15:05] VITALS: BP 144/82; RESP 18; TEMP 98.3
[2020-01-15 16:13] VITALS: PULSE 71
== END 2020-01-15 16:23 | DRG 580 ==
LOC: EC 10:04 → 5NMEDONC 10:58
PROVIDERS: ADMIT Surgery; ATTEND Surgery
PROC: 0JQH0ZZ Repair Left Lower Arm Subcutaneous Tissue and Fascia, Open Approach (ICD-10-PCS; principal; 2020-01-11 15:20)
PROC: 0JQG0ZZ Repair Right Lower Arm Subcutaneous Tissue and Fascia, Open Approach (ICD-10-PCS; principal; 2020-01-11 15:20)
PROC: 0HQ4XZZ Repair Neck Skin, External Approach (ICD-10-PCS; principal; 2020-01-11 15:20)
DX: S51.812A Laceration without foreign body of left forearm, initial encounter (principal); E87.1 Hypo-osmolality and hyponatremia; M62.82 Rhabdomyolysis; S11.81XA Laceration without foreign body of other specified part of neck, initial encounter; F25.1 Schizoaffective disorder, depressive type; K75.9 Inflammatory liver disease, unspecified; S51.811A Laceration without foreign body of right forearm, initial encounter; F31.9 Bipolar disorder, unspecified; F90.9 Attention-deficit hyperactivity disorder, unspecified type; Z87.891 Personal history of nicotine dependence; Z65.3 Problems related to other legal circumstances; Z91.048 Other nonmedicinal substance allergy status; X78.1XXA Intentional self-harm by knife, initial encounter; X79.XXXA Intentional self-harm by blunt object, initial encounter
CPT/HCPCS: 36415; 71045; 72170; 80048; 80053; 80306; 80320; 81003; 82150; 82550; 82553; 83605; 83690; 84484; 85025; 85610; 85730; 86850; 86900; 86901; 90471; 90715; 99285

== ENCOUNTER 2020-01-15 16:30 | Inpatient (IN) | payer MEDICARE, MEDICAID ==
[2020-01-15] MEDS ORDERED: ACETAMINOPHEN TAB 325 MG TAB PO PRN (16:52)
[2020-01-15] MEDS ORDERED: MAG HYDROX/AL HYDROX/SIMETH 30 ML CUP PO PRN (16:52)
[2020-01-15] MEDS ORDERED: MAGNESIUM HYDROXIDE 2,400 MG/10 ML CUP PO PRN (16:52)
[2020-01-15] MEDS ORDERED: ZIPRASIDONE 20 MG VIAL IM PRN (16:52)
[2020-01-16] MEDS: NICOTINE 14MG/24HR PATCH TRANSDERM SCH (08:16)
[2020-01-16] MEDS: LORazepam 1 MG TAB PO PRN (08:18)
[2020-01-16] MEDS: OLANZapine 10 MG TAB PO SCH ×3 (09:41→21:29)
[2020-01-16 13:09] LABS: Glucose,Whole Blood 98 mg/dL (75-99)
[2020-01-16] MEDS ORDERED: OLANZapine 10 MG TAB PO ONE (13:19)
[2020-01-16] MEDS ORDERED: IBUPROFEN 600 MG TAB PO PRN (13:44)
--- NOTE | 2020-01-16 13:48 | P.CONS ---
History of Present Illness - Reason for Consult Medical clearance - History of Present Illness Patient with a history of schizoaffective disorder admitted after laceration of the forearms in an attempt to commit suicide. Patient medical issues were addressed on the medical floor subsequently transferred to psychiatric floor. Patient denied any symptoms at this time patient denied any fever chills nausea vomiting abdominal pain dysuria. Review of Systems REVIEW OF SYSTEMS: CONSTITUTIONAL: No fever, no malaise, no fatigue. HEENT: No recent visual problems or hearing problems. Denied any sore throat. CARDIOVASCULAR: No chest pain, orthopnea, PND, no palpitations, no syncope. PULMONARY: No shortness of breath, no cough, no hemoptysis. GASTROINTESTINAL: No diarrhea, no nausea, no vomiting, no abdominal pain. NEUROLOGICAL: No headaches, no weakness, no numbness. HEMATOLOGICAL: Denies any bleeding or petechiae. GENITOURINARY: Denies any burning micturition, frequency, or urgency. MUSCULOSKELETAL/RHEUMATOLOGICAL: Denies any joint pain, swelling, or any muscle pain. ENDOCRINE: Denies any polyuria or polydipsia. The rest of the 14-point review of systems is negative. Past Medical History Past Medical History: No Reported History Additional Past Medical History / Comment(s): Tachycardia History of Any Multi-Drug Resistant Organisms: None Reported Past Surgical History: Ear Surgery Additional Past Surgical History / Comment(s): When a small child date unknown. Past Anesthesia/Blood Transfusion Reactions: No Reported Reaction Past Psychological History: ADD/ADHD, Bipolar, Depression, Schizoaffective Disorder, Schizophrenia Additional Psychological History / Comment(s): homicidal ideations- pt states he attempted to do harm to another persaon by using a magic spell. pt also states, "i was diagnosed with dillusions but I don't have them. The Dr's are wrong." Smoking Status: Former smoker Past Alcohol Use History: None Reported Additional Past Alcohol Use History / Comment(s): drank a few last month but reports he does not like it. Past Drug Use History: Cocaine, Marijuana Additional Drug Use History / Comment(s): hx of Marjuana use this past year. "Doesn't like it." - Past Family History Sister(s) Additional Family Medical History / Comment(s): delusions Medications and Allergies Home Medications Medication Instructions Recorded Confirmed Type ARIPiprazole [Abilify] 2.5 mg PO DAILY tab 01/15/20 01/15/20 Rx Cephalexin [Keflex] 500 mg PO TID cap 01/15/20 01/15/20 Rx Famotidine [Pepcid] 20 mg PO BID #10 tablet 01/15/20 01/15/20 Rx Ibuprofen [Motrin] 600 mg PO Q8H PRN tab 01/15/20 01/15/20 Rx Allergies Allergy/AdvReac Type Severity Reaction Status Date / Time cat dander Allergy Itching Verified 01/11/20 10:56 dog dander Allergy Itching Verified 01/11/20 10:56 Physical Exam Vitals: Vital Signs Temp Pulse Resp BP Pulse Ox 01/16/20 06:53 98.6 F 90 16 133/78 99 01/15/20 23:01 99.3 F 01/15/20 18:45 98.9 F 99 20 135/87 Intake and Output 01/15/20 01/16/20 01/16/20 22:59 06:59 14:59 Other: Weight 75.115 kg Gen: This is a 24-year-old male sitting up in bed, awake, alert and oriented 3, well-developed, well-nourished. HEENT: Head is atraumatic, normocephalic. Pupils equal, round. Sclerae is anicteric. NECK: Supple. No JVD. No lymphadenopathy. No thyromegaly. Right-sided gauze noted to a superficial laceration repair that is dry and intact. LUNGS: Clear to auscultation. No wheezes or rhonchi. No intercostal r etractions. HEART: Regular rate and rhythm. No murmur. ABDOMEN: Soft. Bowel sounds are present. No masses. No tenderness. EXTREMITIES: No pedal edema. No calf tenderness. Bilateral upper extremities noted to have Mauricio wraps applied to both forearms status post surgical repair of self-inflicted lacerations NEUROLOGICAL: Patient is awake, alert and oriented x3. Cranial nerves 2 through 12 are grossly intact. Assessment and Plan Plan: -Schizoaffective disorder: Management as per primary service. Patient attempted suicide with bilateral lacerations which were treated and patient still has bandages patient will be continued on Keflex for 3 more days. -History of for THC and cocaine use: Counseling was provided -Bilateral forearm lacerations management as mentioned above patient will need local wound care
--- NOTE | 2020-01-16 15:36 | HP ---
HISTORY AND PHYSICAL IDENTIFYING DATA: The patient is a 24-year-old male, he lives independently. He was referred to the ED for evaluation. He was admitted in transfer from the medical floor where he was initially admitted. He was admitted on petition for involuntary hospitalization. CHIEF COMPLAINT: The patient was depressed. He took a screwdriver and an [employer] knife and repeatedly cut his neck and forearms bilaterally. HISTORY OF PRESENTING ILLNESS: The patient was the primary source of information which includes his reviewing history with Dr. Patel. I refer the reader to Dr. Patel psychiatric consultation 01/12/2020 for details. The patient has had long-term psychiatric issues. He was vague on particulars. He was admitted to the medical floor due to the multiple cuts that he inflicted on himself. The patient stated that the lacerations that he inflicted were as part of his suicide attempt where he felt he "did not want to live anymore." He had made contact with his father who apparently intervened to get him to the hospital. He has had long-term psychiatric issues and has had a diagnosis of schizoaffective disorder. He had a previous hospitalization at this facility 10/15/2017 for paranoia and believing people could read his thoughts. I refer the reader to my admission note of 10/15/2017 for details. He also had a psychiatric hospitalization at [facility] in 2016. The patient states that he has had long-term problems where he began experiencing the idea that people could read his thoughts in he said it is called "thought broadcasting." When I asked him about how this developed for him, he made the following statement "I got it on [facility] when I was meditating." He did not provide further details. He says this has been a fairly persistent problem for him over the years, though notes that over time he feels it has gradually gotten less intense and less intrusive. He says one of things he struggles with is anxiety and when he gets anxious, he then "talks under my breath." He says when he does this he ends up reviewing various life situations mostly in a negative way. He again did not provide details in regards to that. He said the most immediate situation he has been dealing with is that he has been seeing people going into an apartment next to him. He made racial references in this regard and made the statement that he has been having problems with "race mixing." He said the thoughts in this regard have intensified over the last 2 months and cause him to feel very scared. Again, he does not quite clarify what he is fearful about. He notes that his sleep has been up and down. His appetite is fair. He was vague about whether he has experiences clearly of auditory hallucinations. He can acknowledge at times that these thoughts about what he had been experiencing are of a delusional nature. He was vague about whether or not he has struggled with any posttraumatic issues. He does indicate that he has had some panic symptoms. He currently is not on any psychotropic medications. He had been living in [place] up to about a year ago. He said when he was there, he was diagnosed with schizophrenia and had been prescribed Haldol and BuSpar. He said he has not been taking these medications for a considerable length of time. He apparently moved back to this area about 1 year ago. He says he has family in the [facility] area. He notes that his mother lives in [place], though he does not identify her as very supportive. He said he made an effort to call her today but she hung up on him. He has a plan of living with his father in the [facility] for about one month after he leaves the hospital. During the interview, the patient made the statement that he does not have immediate impulse or thoughts to harm himself and he is regretful for the behavior that he took. He currently is not on any psychotropic medications. He is admitted for further evaluation. SUBSTANCE USE HISTORY: Patient has a regular use of marijuana. He has had some past abusive use of cocaine, though nothing currently. PAST MEDICAL HISTORY: The patient reports no significant or chronic general health complaints. Please refer to the medical consultation for details. FAMILY AND SOCIAL HISTORY: The patient dropped out of school in the 10th grade. He currently is on disability for mental health issues. He has parents in the area, though he did not provide much detail beyond that. PHYSICAL EXAM: As per medical consultation. MENTAL STATUS EXAM: Patient was somewhat restless during the interview. He gave fair eye contact. He answered questions with brief responses. Some of the time his thoughts were clear, though it was noteworthy that he tended to veer off and would make statements that were vague where it was difficult to follow the meaning. His affect was blunted. His mood depressed. He appeared moderately distressed. He showed evidence of delusional thinking. On cognitive exam, he did make an effort to answer formal cognitive questions. He was oriented and alert. He gave adequate details of his recent history that correlate with the medical record. Insight and judgment are appear poor. Fund of knowledge average. ASSESSMENT: This 24-year-old male is diagnosed with schizophrenia. Precipitants to his current situation are unclear. He has a predominance of delusional thinking both in terms of his experiences of things going on around him distressing him as well as his report of thought broadcasting. He does not clearly identify precipitants. There may be some substance use issues in the picture that are aggravating factors. STRENGTHS: Include togiak intelligence. WEAKNESSES: Includes regular use of marijuana and possible use of other abusive substances. DIAGNOSIS: 1. Chronic schizophrenia with acute exacerbation. 2. Rule out drug abuse. RECOMMENDATIONS: Patient will be admitted for comprehensive medical psychiatric and psychosocial evaluation. We will engage the patient in individual and group therapeutic activities. I had an extensive discussion with the patient regarding treatment issues. Patient was willing to get started on antipsychotic medications. I will start the patient on Zyprexa 10 mg 3 times a day. The aim of Zyprexa is to address his delusions and response to internal stimuli. I reviewed indications for the medication and potential side effects, risks related to metabolics and long-term treatment issues. In regard to antipsychotic medications, we will coordinate with outpatient resources for further treatment and discharge planning. ROSETTA / AMANUEL: [id number] /
[2020-01-16] MEDS: CEPHALEXIN 500 MG CAP PO SCH ×2 (16:57→21:29)
[2020-01-16] MEDS: FAMOTIDINE 20 MG TAB PO SCH (21:29)
[2020-01-17] MEDS: OLANZapine 10 MG TAB PO SCH ×3 (08:26→21:20)
[2020-01-17] MEDS: NICOTINE 14MG/24HR PATCH TRANSDERM SCH (08:26)
[2020-01-17] MEDS: FAMOTIDINE 20 MG TAB PO SCH ×2 (08:26→22:12)
[2020-01-17] MEDS: CEPHALEXIN 500 MG CAP PO SCH ×3 (08:26→22:12)
[2020-01-17] MEDS: LORazepam 1 MG TAB PO PRN ×2 (08:27→18:40)
[2020-01-17] MEDS: BACITRACIN 500 UNIT/GM OINT 28.4 GM TUBE TOPICAL SCH (09:41)
--- NOTE | 2020-01-17 11:28 | P.PN ---
Progress Note - Text Interval history: The patient is found in the hallway he follows me to an interview room. The psychiatric evaluation note was reviewed. The patient was admitted to this mental health unit after he was transferred from the medical floor. He had cut his neck and both of his upper extremities with a razor. He has required numerous sutures. He indicates he still has symptoms of psychosis exemplified by hearing voices. He states back home his neighbors are doing things that are inappropriate to antagonize him. As we spoke he seemed to be responding as he would whisper words to himself. He states that he has thought broadcasting and that his thoughts are out there and that causes him some distress. He has been started on Zyprexa 10 mg 3 times daily. He is not a good historian regarding psychotropic medication referring to past trials. He has no particular opinion regarding the Zyprexa no questions or concerns. Mental status exam: The patient is a male appearing his stated age he has longer curly hair, she has a wound on his right anterior neck that is sutured his upper extremities are bandaged covering his lacerations. Eye contact is intermittent. He is pleasant cooperative easily directed. He appears psychotic during this session he appears to be preoccupied. He endorses thought broadcasting. He reports paranoid and persecutory thoughts such as his neighbors doing illegal and inappropriate things in part to antagonize him. He expresses distress over this still and is concerned that it will not stop. He is reporting no thoughts of harming others. He demonstrates no verbal or physical aggressiveness. Speech was fluent for the most part he responded to questions. He maintains a bland affect throughout the session. He demonstrates no involuntary repetitive movements. Plan: The patient remains acutely psychotic. We will continue the Zyprexa as written and we will monitor for efficacy. He is encouraged to participate fully in the milieu vital signs reviewed. Nursing reports that his wounds show no sign of infection. We will involve family or friends in his treatment and disc harge planning as he will allow. He requires continued psychiatric hospitalization.
[2020-01-17] MEDS: MULTIVITAMINS, THERA 1 EACH TAB PO SCH (11:45)
[2020-01-18] MEDS: FAMOTIDINE 20 MG TAB PO SCH ×2 (08:27→20:42)
[2020-01-18] MEDS: CEPHALEXIN 500 MG CAP PO SCH ×3 (08:27→20:42)
[2020-01-18] MEDS: OLANZapine 10 MG TAB PO SCH ×3 (08:27→20:43)
[2020-01-18] MEDS: LORazepam 1 MG TAB PO PRN ×2 (08:27→16:21)
[2020-01-18] MEDS: MULTIVITAMINS, THERA 1 EACH TAB PO SCH (08:28)
[2020-01-18] MEDS: BACITRACIN 500 UNIT/GM OINT 28.4 GM TUBE TOPICAL SCH (08:28)
[2020-01-18] MEDS: NICOTINE 14MG/24HR PATCH TRANSDERM SCH (08:28)
[2020-01-18] MEDS: busPIRone HCl 5 MG TAB PO SCH ×2 (09:32→20:42)
--- NOTE | 2020-01-18 11:25 | P.PN ---
Progress Note - Text Interval history: The patient is found in the hallway he follows me to an interview room he indicates his mood is not good today. He states he has feelings of guilt over things he's done in the past. He reports feeling bad about hurting the cat when he was a child. He states he still feels in danger but provides no specific information. He feels that his thought broadcasting has reduced. We discussed his self-injurious behavior specifically his neck and forearm lacerations. He states he had two reasons. He refuses to discuss one of the reasons but states the other one was due to the increase of interracial couples in his neighborhood. We reviewed his psychotropic medications he has no questions. He states in the past he has trialed Haldol, Abilify very briefly and Risperdal. He indicates Risperdal caused significant weight gain. Staff report no behavioral disturbances they do observe him speaking to himself quietl y as he ambulates in the hallway. Mental status exam: The patient is alert he is cooperative and pleasant. He is dressed in the same clothing hygiene grooming adequate eye contact is intermittent he often looks down. He has a healing wound on his right anterior neck he is wearing bandages covering his upper extremity wounds. He indicates his mood is not good his affect is blunted. He continues to describe a variety of disorganized delusional thoughts. Some of these are paranoid in nature. He indicates how these thoughts will make him feel overwhelmed and that is what triggered his self-injurious actions. He demonstrated no verbal or physical aggressiveness he demonstrates no involuntary attend of movements. Insight and judgment are impaired. He states he is able to keep himself safe in the hospital, he reports no thoughts of harming others. He Plan: The patient remains acutely psychotic this does place him at acute risk for harming himself again. We will continue the Zyprexa he has not been on this medication before we are using a therapeutic dose and we will allow the medication time to demonstrate efficacy. We will monitor him for safety he is encouraged to participate in the milieu. Social work will contact the patient's father to obtain collateral information specifically regarding the patient's known baseline.
[2020-01-19] MEDS: MULTIVITAMINS, THERA 1 EACH TAB PO SCH (07:54)
[2020-01-19] MEDS: busPIRone HCl 5 MG TAB PO SCH ×2 (07:54→20:49)
[2020-01-19] MEDS: FAMOTIDINE 20 MG TAB PO SCH ×2 (07:54→20:49)
[2020-01-19] MEDS: CEPHALEXIN 500 MG CAP PO SCH ×3 (07:55→20:49)
[2020-01-19] MEDS: OLANZapine 10 MG TAB PO SCH ×3 (07:55→20:49)
[2020-01-19] MEDS: LORazepam 1 MG TAB PO PRN ×2 (07:55→16:45)
[2020-01-19] MEDS: BACITRACIN 500 UNIT/GM OINT 28.4 GM TUBE TOPICAL SCH (07:56)
[2020-01-19] MEDS: NICOTINE 14MG/24HR PATCH TRANSDERM SCH (07:58)
--- NOTE | 2020-01-19 11:11 | P.PN ---
Progress Note - Text Interval history: The patient's found in the hallway he follows me to an interview room. He indicates continued feelings of being unsafe. He has some difficulty explaining how. He refers to having guilt and shame regarding unwanted sexual thoughts. In a paranoid sense he states that the female staff members are mean but does not specify how. He states that his thought broadcasting does continue. He states he is able to hear his subconscious thoughts. It appears that that content is negative in nature. He has no questions or concerns regarding medication. Social work notes were reviewed as they were able to speak with his father. It appears that the patient lacerated himself 2 days after his father moved out. His father had been staying with him for several weeks the patient states that him and his father often argue over gnosticist believes or past world history. Mental status exam: The patient is alert he is dressed in his own clothing he does have his arms bandaged. I was able to observe the dressing change of one of his arms and the laceration was quite extensive. It did appear to be healing without any signs of infection. His neck wound appears to be healing appropriately. He maintains a blunted affect. He reports feelings of being unsafe and continues to experience auditory hallucinations. He characterizes this as his subconscious "thought broadcasting". He is preoccupied with sexual thoughts that appear to be causing shame and guilt. He reports some persecutory thoughts referring to female staff members. Insight and judgment are poor. He demonstrates no verbal or physical aggressiveness. He demonstrates no involuntary repetitive movements. Plan: The patient will continue on the Zyprexa as written. This was just recently started this past weekend. We will consider augmenting the Zyprexa with another antipsychotic if needed. Use of an injectable form of an antipsychotic will be considered. At this point I feel that he will require structure and supervision upon discharge and we will explore the option of him being placed at a penitentiary through [facility]. The patient remains a very high risk in terms of safety and requires continued psychiatric hospitalization.
[2020-01-20] MEDS: BACITRACIN 500 UNIT/GM OINT 28.4 GM TUBE TOPICAL SCH (08:10)
[2020-01-20] MEDS: busPIRone HCl 5 MG TAB PO SCH (08:10)
[2020-01-20] MEDS: LORazepam 1 MG TAB PO PRN ×2 (08:10→17:16)
[2020-01-20] MEDS: MULTIVITAMINS, THERA 1 EACH TAB PO SCH (08:10)
[2020-01-20] MEDS: FAMOTIDINE 20 MG TAB PO SCH ×2 (08:10→20:50)
[2020-01-20] MEDS: OLANZapine 10 MG TAB PO SCH ×3 (08:10→20:50)
[2020-01-20] MEDS: NICOTINE 14MG/24HR PATCH TRANSDERM SCH (08:12)
--- NOTE | 2020-01-20 11:49 | P.PN ---
Progress Note - Text Interval history: The patient is found in group he follows me to an interview room. He indicates his mood is anxious. He states that he is experiencing feelings of depression as well. He states depressive symptoms have been part of the scenario for quite some time. We discussed discontinuing the BuSpar and transitioning to Zoloft and he was agreeable. He has been compliant with the Zyprexa. He does continue to describe auditory hallucinations and paranoid thoughts. Staff report that he continues to speak quietly and he makes bizarre statements in group at times. No behavioral disturbance is noted. Social work has reached out to [facility] to begin planning for residential placement once he is clinically stable for discharge. Mental status exam: The patient is an alert male appearing his stated age he has longer curly hair. He is dressed in his own clothing. One of his upper extremities no longer has bandaging. A healing laceration is noted which extends from his antecubital fossa to his distal wrist on the anterior surface. Skin sofie are visible. No signs of infection. At the antecubital fossa there are numerous superficial healing lacerations. He reports his mood is depressed and anxious he continues to feel unsafe. He endorses auditory hallucinations. He is reporting no current suicidal thoughts or thoughts of harming others but indicates he feels hopeless as none of the medicines have helped him yet. Insight and judgment are impaired. He demonstrates no verbal or physical aggressiveness. He maintains a blunted affect. Plan: The patient will continue on the Zyprexa is written we will discontinue the BuSpar I will initiate Zoloft 50 mg at bedtime our plan will be to titrate that medication further. We will give the Zyprexa more time to demonstrate efficacy for psychosis we will consider augmenting with atypical antipsychotic. The patient remains an acute safety risk he requires inpatient psychiatric hospitalization. Vital signs reviewed.
[2020-01-20] MEDS: SERTRALINE 50 MG TAB PO SCH (20:50)
[2020-01-21] MEDS: LORazepam 1 MG TAB PO PRN ×2 (06:20→13:16)
[2020-01-21] MEDS: BACITRACIN 500 UNIT/GM OINT 28.4 GM TUBE TOPICAL SCH (09:05)
[2020-01-21] MEDS: OLANZapine 10 MG TAB PO SCH ×3 (09:06→20:59)
[2020-01-21] MEDS: NICOTINE 14MG/24HR PATCH TRANSDERM SCH (09:06)
[2020-01-21] MEDS: MULTIVITAMINS, THERA 1 EACH TAB PO SCH (09:06)
[2020-01-21] MEDS: FAMOTIDINE 20 MG TAB PO SCH ×2 (09:06→20:59)
[2020-01-21 11:10] VITALS: BMI 25.0
--- NOTE | 2020-01-21 11:46 | P.PN ---
Progress Note - Text Interval history: The patient is found in the hallway he follows me to an interview room. He indicates his mood is still anxious and depressed. He states he has feelings of guilt about something he did a year ago and that was the reason that he cut his neck and arms. He states that this action caused great guilt and shame. He reports that as he walked by a female security orderly today he whispered something under his breath he believes she heard it and then had "fire in her eyes as she looked at me". He was convinced that she heard what he said and was angered by it. We tried to reality test some of his thinking. He does remain psychotic. Staff report his affect appears mildly brighter at times. The patient has no questions or concerns regarding his medication. Mental status exam: The patient is alert he is a disheveled appearance hygiene is adequate he is dressed in his own clothing. His right upper extremity no l onger has the bandage on it his extensive wound is healing. The left upper extremity is still bandage his neck wound is healing without any sign of infection. Eye contact is intermittent. Speech is fluent nonpressured spontaneous at times he mainly response to questions. He continues to ask. Auditory hallucinations he continues to experience paranoid persecutory thinking. He is experiencing shame and guilt related to past actions that he believes will end him up in nursing home. Insight and judgment are impaired. He demonstrates no verbal or physical aggressiveness. Plan: The patient remains acutely psychotic. We will continue his current medications as written allowing them time to demonstrate benefit. We will monitor him for safety. He requires this level of care and would be at great risk if discharged at this time. Vital signs reviewed.
[2020-01-21] MEDS: SERTRALINE 50 MG TAB PO SCH (20:59)
[2020-01-22] MEDS: FAMOTIDINE 20 MG TAB PO SCH ×2 (07:40→20:33)
[2020-01-22] MEDS: LORazepam 1 MG TAB PO PRN ×2 (07:41→15:37)
[2020-01-22] MEDS: NICOTINE 14MG/24HR PATCH TRANSDERM SCH (07:41)
[2020-01-22] MEDS: OLANZapine 10 MG TAB PO SCH ×3 (07:41→20:34)
[2020-01-22] MEDS: MULTIVITAMINS, THERA 1 EACH TAB PO SCH (07:41)
[2020-01-22] MEDS: BACITRACIN 500 UNIT/GM OINT 28.4 GM TUBE TOPICAL SCH (09:49)
[2020-01-22] MEDS ORDERED: BENZTROPINE MESYLATE 1 MG TAB PO PRN (09:56)
--- NOTE | 2020-01-22 10:06 | P.PN ---
Progress Note - Text Interval history: The patient is found in the [facility] he follows me to an interview room. He indicates his mood is still anxious. He reports being concerned about going to residential or being in trouble for past actions. He continues to ruminate on that troubling thoughts. Again that was the motivation behind him attempting suicide as he felt it was the only way to evade imprisonment. We focused on trying to more realistically assessing situations but he is still significantly struggling with fatigability. Staff report no behavioral disturbances. He indicates that he is eating. Mental status exam: The patient is alert his wounds are now all uncovered. They are healing without sign of infection. He does have sofie present in all of his wounds. He describes an anxious mood he is distressed by his anxiety he is distressed by the paranoid and persecutory thinking that he continues to experience. Insight and judgment remain poor. He reports continued "thought broadcasting" which appears to be him experiencing auditory hallucinations he describes as his subconscious. He reports hopelessness thinking still he states he still has suicidal thoughts but does not wish to act on those. He is reporting no thoughts of harming others. Affect remains constricted. Intellectually there is some perceived limitation. He is holding a book and he has been observed reading this book for the last 2 days. He is unable to provide any factual information that he's read from that book. Plan: The patient will continue on the Zyprexa and the Zoloft. I do plan to titrate the Zoloft further during his stay to increase its efficacy for his anxiety symptoms. I will add Prolixin 2.5 mg at bedtime this evening we will make Cogentin available as needed for any extrapyramidal side effects. His symptoms of psychosis remain persistent despite his current use of Zyprexa. We will monitor him for safety he is encouraged to participate in groups. He remains an acute risk in terms of safety and requires continued psychiatric hospitalization.
[2020-01-22] MEDS: SERTRALINE 50 MG TAB PO SCH (20:34)
[2020-01-23] MEDS: LORazepam 1 MG TAB PO PRN ×2 (06:19→17:25)
[2020-01-23] MEDS: BACITRACIN 500 UNIT/GM OINT 28.4 GM TUBE TOPICAL SCH (08:41)
[2020-01-23] MEDS: MULTIVITAMINS, THERA 1 EACH TAB PO SCH (08:42)
[2020-01-23] MEDS: OLANZapine 10 MG TAB PO SCH ×3 (08:42→20:50)
[2020-01-23] MEDS: FAMOTIDINE 20 MG TAB PO SCH ×2 (08:42→20:50)
[2020-01-23] MEDS: NICOTINE 14MG/24HR PATCH TRANSDERM SCH (08:42)
--- NOTE | 2020-01-23 12:01 | P.PN ---
Progress Note - Text Interval history: The patient is found in his room he follows me to an interview room. He indicates that his mood is still anxious. He states he didn't attend groups today because of his anxiety. He states the thought broadcasting causes him to continued on her statements under his breath. He feels that he is receiving cues from others that he has done something wrong. He has been compliant with his medication. No behavioral disturbance is noted. Mental status exam: The patient is alert he has a disheveled appearance he ambul ates without difficulty. He remains calmly seated in the chair. All of his wounds are now exposed and appear to be healing without sign of infection. Eye contact is intermittent. Speech is spontaneous slow. He is nonpressured. He demonstrates no tangential thinking loose associations or flight of ideas. He does continue to cooperate with a delusional thought content. He continues to experience auditory hallucinations. He has an overwhelming sense of guilt and shame about inappropriate past actions. He continues to fear that he will be punished for those. He demonstrates no verbal or physical aggressiveness. He demonstrates no involuntary repetitive movements. Insight and judgment are impaired. Plan: The patient will continue on his current psychotropic medications. I will titrate the Zoloft 200 mg daily. I will plan to titrate the Prolixin further when appropriate. Vital signs reviewed. He is encouraged to reengage in groups. He requires continued psychiatric hospitalization.
[2020-01-23] MEDS: SERTRALINE 100 MG TAB PO SCH (20:50)
[2020-01-24] MEDS: LORazepam 1 MG TAB PO PRN (06:51)
[2020-01-24] MEDS: OLANZapine 10 MG TAB PO SCH ×3 (08:13→21:36)
[2020-01-24] MEDS: MULTIVITAMINS, THERA 1 EACH TAB PO SCH (08:13)
[2020-01-24] MEDS: NICOTINE 14MG/24HR PATCH TRANSDERM SCH (08:13)
[2020-01-24] MEDS: BACITRACIN 500 UNIT/GM OINT 28.4 GM TUBE TOPICAL SCH (08:13)
[2020-01-24] MEDS: FAMOTIDINE 20 MG TAB PO SCH ×2 (08:13→21:36)
--- NOTE | 2020-01-24 10:09 | P.PN ---
Progress Note - Text Interval history: The patient is found in his room he follows me to an interview room. He states that he continues to avoid groups as he continues to mumble things under his breath. He states today that he thinks the medication is bringing back bad experiences. He finds these visions very disturbing. He states that he has retreating to his room due to anxiety. He feels uncomfortable around other people. He states he is trying to eat fast just to limit his time in the dining room. We discussed the importance of attending groups and not isolating in his room. He has no questions or concerns regarding his medication. Mental status exam: The patient is alert he is dressed in his own clothing he has a disheveled appearance. He has been wearing the same clothing throughout his stay. Eye contact is intermittent. His wounds are visible they continue to heal without sign of infection. He describes an anxious mood he feels distressed. He continues to describe auditory hallucinations. He describes a variety of delusional thoughts. He states that he continues to have suicidal ideation intermittently. He is concerned that he will have to stay in the hospital for long-term. Insight and judgment are impaired. He demonstrates no verbal or physical aggressiveness he demonstrates no involuntary repetitive movements. Affect is bland. Plan: The patient will continue on his current psychotropic medication I will titrate the Prolixin to 5 mg at bedtime. We will monitor him for safety. He is encouraged to get out of his room more and attempt group participation. He remains an acute safety risk and requires continued psychiatric care in the hospital.
--- NOTE | 2020-01-24 15:35 | PN ---
PROGRESS NOTE DATE OF VISIT: 01/24/2020 This 24-year-old gentleman was admitted with a suicide attempt and laceration of both hands. Multiple sofie were inserted more than 10 days ago. The patient is being closely monitored at this time. Some erythema was noted. Not much discharge is complained of. No chest pain. No palpitations. No fever. PHYSICAL EXAMINATION: Alert and oriented x3. Pulse is 110. Blood pressure 171/81, respiration 18, temperature 97.9, pulse ox 93% on room air. HEENT: Conjunctivae normal. NECK: No jugular venous distention. CARDIOVASCULAR SYSTEM: S1, S2 muffled. RESPIRATORY SYSTEM: Breath sounds diminished at the bases. No rhonchi. No crackles. ABDOMEN: Soft, non-tender. LEGS: No edema. No swelling. Bilateral arms have wounds with sofie. Some erythema present. No discharge. NERVOUS SYSTEM: No focal deficit. LABS: Accu-Cheks 98. ASSESSMENT: 1. Bilateral forearm lacerations, status post sofie. 2. Schizoaffective disorder. 3. History of tetrahydrocannabinol, cocaine. 4. History attention deficit disorder, attention deficit hyperactivity disorder, bipolar, depression. 5. Schizoaffective disorder. 6. Remote history of nicotine dependence. RECOMMENDATIONS AND DISCUSSION: In this 24-year-old gentleman who presented with multiple medical issues, I recommend surgical evaluation and possible stitch removal. Otherwise, I would also recommend a short course of antibiotic if there is any continued erythema or discharge or continued fever. Otherwise, continue to monitor. Further recommendations to follow. MMODL / IJN: [id number] / MTDGita
[2020-01-24] MEDS: SERTRALINE 100 MG TAB PO SCH (21:36)
[2020-01-25] MEDS: LORazepam 1 MG TAB PO PRN ×2 (05:55→14:04)
[2020-01-25] MEDS: OLANZapine 10 MG TAB PO SCH ×3 (08:18→22:06)
[2020-01-25] MEDS: FAMOTIDINE 20 MG TAB PO SCH ×2 (08:18→22:06)
[2020-01-25] MEDS: NICOTINE 14MG/24HR PATCH TRANSDERM SCH (08:18)
[2020-01-25] MEDS: MULTIVITAMINS, THERA 1 EACH TAB PO SCH (08:18)
[2020-01-25] MEDS: BACITRACIN 500 UNIT/GM OINT 28.4 GM TUBE TOPICAL SCH ×2 (08:19→08:21)
--- NOTE | 2020-01-25 10:09 | P.PN ---
Progress Note - Text Interval history: The patient's found in group he follows me to an interview room. He states that his mood is a little better today. He states that he was able to go to group he still feels anxious but is mildly decreased. He still ate fast to avoid others in the dining room he reports. Staff reports he slept 6-7 hours last night. He has been speaking with his father via phone. [employer] worker did speak with the patient's father those notes were reviewed. The patient indicates that he still has "thought broadcasting" he is experiencing auditory hallucinations. He minimizes those today. He reports he still has suicidal thoughts but he is trying to push those away. He has no questions or concerns regarding his medication. Mental status exam: The patient is an alert male appearing his stated age. He is dressed in his own clothing he is wearing a hooded sweatshirt today covering his wounds on his upper extremities. Eye contact is intermittent affect is mildly brighter. He reports continued hopelessness thoughts and intermittent suicidal thoughts but he reports he is trying to push those away. He continues to endorse auditory hallucinations. He reports no command auditory hallucinations. He demonstrates no verbal or physical aggressiveness. He demonstrates no involuntary repetitive movements. He demonstrates no tangential thinking loose associations or flight of ideas. He continues to hold the same book that he has been carrying around the last few days about [employer]. He does not appear to be advancing through that book very quickly. He continues to struggle with providing any synopsis of what he read. Plan: The patient will continue on his current psychotropic medication. We will monitor him for safety and encourage his participation in the milieu. Today is the first time he is indicated any improvement. We will allow the medication more time to demonstrate efficacy. We will continue to stay in close contact with his family. Vital signs reviewed. He requires continued psychiatric hospitalization.
--- NOTE | 2020-01-25 17:31 | PN ---
PROGRESS NOTE DATE OF SERVICE: 01/25/2020 This 24-year-old gentleman who was admitted with bilateral forearm lacerations has had every alternate suture removed. The patient also is refusing any local antibiotic treatment. No chest pain. No palpitations. No fever. On exam, alert and oriented x3. Pulse 127, blood pressure 127/91, respiration 16, temperature 98.6, pulse ox 98% on room air. HEENT: Conjunctivae normal. NECK: No jugular venous distention. CARDIOVASCULAR SYSTEM: S1, S2 muffled. RESPIRATORY SYSTEM: Breath sounds diminished at the bases. No rhonchi. No crackles. ABDOMEN: Soft. NERVOUS SYSTEM: No focal deficit. EXAMINATION OF FOREARMS: Bilateral wounds with some erythema, which is not increasing at this time. ASSESSMENT: 1. Bilateral forearm lacerations, status post sofie. 2. Schizoaffective disorder, anxiety. 3. History of tetrahydrocannabinol, cocaine. 4. History of attention deficit disorder, attention deficit hyperactivity disorder. 5. Bipolar depression. 6. Remote history of nicotine dependence. RECOMMENDATIONS AND DISCUSSION: I recommend to continue current medications, continue with the monitoring, symptomatic treatment. Further staple removal in the forearms and neck per Surgery. Recommend close followup with a primary physician. Will hold off the antibiotics at this time. Will continue to monitor. MMODL / IJN: [id number] /
[2020-01-25] MEDS: SERTRALINE 100 MG TAB PO SCH (22:06)
[2020-01-26] MEDS: LORazepam 1 MG TAB PO PRN ×2 (06:40→13:45)
[2020-01-26] MEDS: LABETALOL 200 MG TAB PO STA ×2 (07:58→13:23)
[2020-01-26] MEDS: NICOTINE 14MG/24HR PATCH TRANSDERM SCH (07:59)
[2020-01-26] MEDS: OLANZapine 10 MG TAB PO SCH ×3 (07:59→21:30)
[2020-01-26] MEDS: FAMOTIDINE 20 MG TAB PO SCH ×2 (07:59→21:30)
[2020-01-26] MEDS: BACITRACIN 500 UNIT/GM OINT 28.4 GM TUBE TOPICAL SCH (07:59)
[2020-01-26] MEDS: MULTIVITAMINS, THERA 1 EACH TAB PO SCH (07:59)
--- NOTE | 2020-01-26 11:36 | P.PN ---
Progress Note - Text Interval history: The patient's found in his room he follows me to an interview room. He states that he is not feeling as good today as he did yesterday. He feels that the change in weather may have made a difference. He continues to report feelings of anxiety. He avoided groups this morning. He is sleeping at night appetite is stable. Continued supportive phone calls with his family. He has no questions or concerns regarding medications. He is verbalizing more often that he would like to be discharged and staying here longer makes him feel sad. Mental status exam: The patient is alert he is dressed in the same clothing he is wearing an oversized hooded sweatshirt which covers his extensive forearm wounds. Hygiene is adequate he is a disheveled appearance eye contact is intermittent. He maintains a bland affect. He quickly denies having any hopeless thoughts or suicidal ideation. He may be underreporting to facilitate a discharge. He continues to experience auditory hallucinations and feelings of guilt. He demonstrates no verbal or physical aggressiveness he demonstrates no involuntary movements. He is oriented to person place and date. Plan: The patient will continue on his current medications. Nursing highlighted that he is experiencing elevated blood pressure readings and tachycardia early in the morning. We will get an EKG to be sure he is in sinus rhythm. We will check the QT interval. He was seen by internal medicine yesterday. We will look for further recommendations in terms of staple removal from surgery. He requires continued psychiatric hospitalization. We will continue to monitor him for safety and encourage full participation in the milieu.
--- NOTE | 2020-01-26 16:44 | PN ---
PROGRESS NOTE DATE OF SERVICE: 01/26/2020 This is a 24-year-old gentleman who was admitted with bilateral forearm lacerations, is being closely monitored. Alternate stitches were removed by Surgery. The patient has some erythema. No itching is reported. Patient also had labile hypertension as well tachycardia also. PHYSICAL EXAMINATION: Alert and oriented x3. Pulse is 113, blood pressure 130/91, respiration 18, temperature is normal, pulse ox normal. HEENT: Conjunctivae normal. NECK: No jugular venous distension. CARDIOVASCULAR SYSTEM: S1, S2, muffled. RESPIRATORY: Breath sounds diminished at the bases, no rhonchi, no crackles. ABDOMEN: Soft, nontender. LEGS: No edema, no swelling. NERVOUS SYSTEM: No focal deficits. Examination of the forearm features infection present. LABS: Hemoglobin 12.5 and platelets 130. BUN and creatinine are normal. Lactic acid was normal. Creatine kinase of 14.63. ASSESSMENT: 1. Bilateral forearm laceration, status post staple. 2. Labile hypertension, tachycardia. 3. Schizoaffective disorder, anxiety. 4. History of THC, cocaine. 5. History of ADD, ADHD. 6. Bipolar depression. 7. Remote history of nicotine dependence. RECOMMENDATION\: In this 24-year-old gentleman with presented with multiple complex medical issues, recommend to continue with the current management and symptomatic treatment. I would recommend removal of the rest of sofie per Surgery, otherwise hold off antibiotics. I would also give a small dose of clonidine and continue to monitor. Will follow the patient closely with you. Monitor blood pressure closely. Thank you for letting us participate in the patient's care. MMODL / IJN: [id number] /
[2020-01-26] MEDS: SERTRALINE 100 MG TAB PO SCH (21:30)
[2020-01-26] MEDS: cloNIDine HCL 0.1 MG TAB PO SCH (21:30)
[2020-01-27] MEDS: LORazepam 1 MG TAB PO PRN (06:33)
[2020-01-27 07:18] LABS: Basophils % (A) 1 %; Eosinophils # (A) 0.1 k/uL (0-0.7); Eosinophils % (A) 4 %; HCT 44.3 % (39.0-53.0); HGB 14.7 gm/dL (13.0-17.5); Lymphocytes # (A) 1.4 k/uL (1.0-4.8); Lymphocytes % (A) 38 %; MCH 31.4 pg (25.0-35.0); MCHC 33.2 g/dL (31.0-37.0); MCV 94.7 fL (80.0-100.0); Mean Platelet Volume 8.5; Monocytes # (A) 0.2 k/uL (0-1.0); Monocytes % (A) 5 %; Neutrophils # (A) 1.8 k/uL (1.3-7.7); Neutrophils % (A) 50 %; Platelet Count 228 k/uL (150-450); RBC 4.68 m/uL (4.30-5.90); RDW 12.4 % (11.5-15.5); WBC 3.7 k/uL (3.8-10.6)
[2020-01-27 07:40] LABS: ALT 33 U/L (4-49); AST 23 U/L (17-59); African American GFR (CKD) >90 (>60 ml/min/1.73 sqM); Alkaline Phosphatase 67 U/L (38-126); Anion Gap 7 mmol/L; Blood Urea Nitrogen 16 mg/dL (9-20); Calcium 9.6 mg/dL (8.4-10.2); Carbon Dioxide 26 mmol/L (22-30); Chloride 106 mmol/L (98-107); Glucose 92 mg/dL (74-99); Non-African American GFR(CKD) >90 (>60 ml/min/1.73 sqM); Potassium 4.3 mmol/L (3.5-5.1); Sodium 139 mmol/L (137-145); Total Bilirubin 0.8 mg/dL (0.2-1.3)
--- NOTE | 2020-01-27 09:33 | P.PN ---
Progress Note - Text Interval history: The patient is found in the hallway follows me to an interview room. He indicates that his mood is down. He reports he continues to have suicidal thoughts. He feels that he wouldn't act on it again because he knows it would be harmful to his family. He continues to be troubled by thoughts that he has done something wrong and will be punished for it. We tried to reality test those thoughts. He is receptive to options but continues to struggle with entertaining more objective thinking. We discussed his participation in groups. Understanding that the anxiety seems to be an obstacle he is encouraged to push himself to participate more. He has no questions or concerns regarding medication. He was seen by internal medicine regarding the labile hypertension. We will review the EKG result. He states he continues to have conversations with his father that are supportive. Mental status exam: The patient is alert he is dressed in the same clothing hygiene is adequate his wounds are covered with the same oversized sweatshirt. Eye contact is appropriate speech is fluent spontaneous nonpressured. He ma intains a constricted to bland affect. He reports intermittent suicidal thoughts he feels hopeless at times. He reports no acute intent or plan of acting on those thoughts. He reports no homicidal ideation intent or plan. He continues to endorse auditory hallucinations that are noncommanding. The most concerning delusion he has is one that pertains to a fear that he will be in legal trouble for past actions that he describes as inappropriate. He demonstrates no verbal or physical aggressiveness. He demonstrates no involuntary repetitive movements. Plan: The patient will continue on his current psychotropic medications. We discussed that the Zoloft will take some time to demonstrate benefit regarding depressive and anxiety symptoms. He is on a significant amount of antipsychotic at this time we will give this more time to demonstrate efficacy. We will consider titrating the dose of the Prolixin further. Vital signs reviewed. He is encouraged to participate fully in the milieu we will monitor him for safety we will continue to involve his family in treatment and discharge planning as the patient will allow.
[2020-01-27] MEDS: BACITRACIN 500 UNIT/GM OINT 28.4 GM TUBE TOPICAL SCH (09:46)
[2020-01-27] MEDS: NICOTINE 14MG/24HR PATCH TRANSDERM SCH (09:47)
[2020-01-27] MEDS: FAMOTIDINE 20 MG TAB PO SCH ×2 (09:47→21:31)
[2020-01-27] MEDS: MULTIVITAMINS, THERA 1 EACH TAB PO SCH (09:47)
[2020-01-27] MEDS: OLANZapine 10 MG TAB PO SCH ×3 (09:47→21:31)
[2020-01-27] MEDS: cloNIDine HCL 0.1 MG TAB PO SCH ×2 (09:48→21:31)
[2020-01-27] MEDS: SERTRALINE 100 MG TAB PO SCH (21:31)
[2020-01-28] MEDS: LORazepam 1 MG TAB PO PRN (06:01)
[2020-01-28] MEDS: BACITRACIN 500 UNIT/GM OINT 28.4 GM TUBE TOPICAL SCH (09:06)
[2020-01-28] MEDS: FAMOTIDINE 20 MG TAB PO SCH ×2 (09:08→21:43)
[2020-01-28] MEDS: cloNIDine HCL 0.1 MG TAB PO SCH ×2 (09:08→21:43)
[2020-01-28] MEDS: MULTIVITAMINS, THERA 1 EACH TAB PO SCH (09:08)
[2020-01-28] MEDS: OLANZapine 10 MG TAB PO SCH ×3 (09:08→21:43)
[2020-01-28] MEDS: NICOTINE 14MG/24HR PATCH TRANSDERM SCH (09:09)
--- NOTE | 2020-01-28 09:31 | P.PN ---
Progress Note - Text Interval history: The patient is found in the medication window he follows me to an interview room. He indicates his mood is a little better today. He reports that he is going to try to increase his efforts to attend group. He indicates he did attend some groups yesterday. He has been able to sleep at night appetite stable. He states he wishes he could see his family but he is comforted by the phone calls he receives. He continues to find family member supportive. He states he does continue to experience "thought broadcasting". He reports he can't remember what they're saying but it was negative. He is reporting no command auditory hallucinations. He continues to have fear that he has done something wrong and will be punished area he states that suicidal thoughts remain intermittent but he keeps telling himself he cannot act on those. He continues to refer to how his family would react if he did kill himself. Mental status exam: The patient is alert he is dressed in his own clothing which has been the same outfit since he has been here. Hygiene is adequate he's mildly disheveled. Eye contact is good. Affect is a little brighter today he wore readily engages in conversation. He has some spontaneous speech she does respond to questions. He demonstrates no pressured speech no tangential thinking loose associations or flight of ideas. He attends to the interview well he does not appear to be actively hallucinating. He describes delusional thoughts as noted above. Insight and judgment remain impaired. He demonstrates no verbal or physical aggressiveness. He is easily directed in the session. He demonstrates no involuntary repetitive movements. Plan: The patient may be demonstrating some mild improvement. We will continue to monitor him for safety. Vital signs reviewed. He is encouraged to fully participate in the milieu. We will stay in contact with his family regarding discharge planning. He requires continued psychiatric hospitalization. We will continue to assess his safety risk and the severity of his psychosis and monitor how he is approximating his known baseline.
[2020-01-28] MEDS: SERTRALINE 100 MG TAB PO SCH (21:43)
[2020-01-29] MEDS: LORazepam 1 MG TAB PO PRN ×2 (06:28→13:31)
[2020-01-29] MEDS: NICOTINE 14MG/24HR PATCH TRANSDERM SCH (08:13)
[2020-01-29] MEDS: OLANZapine 10 MG TAB PO SCH ×3 (08:13→21:54)
[2020-01-29] MEDS: MULTIVITAMINS, THERA 1 EACH TAB PO SCH (08:14)
[2020-01-29] MEDS: BACITRACIN 500 UNIT/GM OINT 28.4 GM TUBE TOPICAL SCH (08:14)
[2020-01-29] MEDS: FAMOTIDINE 20 MG TAB PO SCH ×2 (08:14→21:54)
[2020-01-29] MEDS: cloNIDine HCL 0.1 MG TAB PO SCH ×2 (08:14→21:55)
--- NOTE | 2020-01-29 13:16 | P.PN ---
Progress Note - Text Progress Note Date: 01/29/20 Interval history: Patient is seen in cross coverage today. Sleep and appetite seem to be stable. He has not verbalize any adverse psychotropic medication side effects. He does seem to report that his anxiety level in his mood are doing better compared to admission. Mental status exam: He is alert and cooperative with the interview. His speech is fluent, not rapid or pressured. His answers are somewhat brief. He does seem to describe some overall improvement with mood. He denies any thoughts of harm to self or others. He denies any auditory or visual hallucinations. He does not display any agitation. Plan: Patient will be maintained on current psychotropic medication regimen. Continue to monitor for any medication side effects and monitor his ongoing response to treatment.
[2020-01-29] MEDS: SERTRALINE 100 MG TAB PO SCH (21:55)
[2020-01-30] MEDS: LORazepam 1 MG TAB PO PRN ×2 (06:15→17:38)
[2020-01-30] MEDS: OLANZapine 10 MG TAB PO SCH ×3 (08:47→22:30)
[2020-01-30] MEDS: cloNIDine HCL 0.1 MG TAB PO SCH ×2 (08:47→22:30)
[2020-01-30] MEDS: MULTIVITAMINS, THERA 1 EACH TAB PO SCH (08:47)
[2020-01-30] MEDS: FAMOTIDINE 20 MG TAB PO SCH ×2 (08:47→22:30)
[2020-01-30] MEDS: BACITRACIN 500 UNIT/GM OINT 28.4 GM TUBE TOPICAL SCH (08:47)
[2020-01-30] MEDS: NICOTINE 14MG/24HR PATCH TRANSDERM SCH (08:47)
--- NOTE | 2020-01-30 14:46 | P.PN ---
Progress Note - Text Progress Note Date: 01/30/20 Interval history: Patient reports he slept about 10 hours last night. He seems to be eating well. He denies any adverse psychotropic medication side effects. He is seen again in cross coverage today. Mental status exam: Patient is alert and cooperative with the interview. Answers are somewhat brief. He reports his mood is pretty good. At this time he is currently denying any thoughts of harm to self or others. He denies any hallucinations. Thought processes overall are organized. He does not display any agitation. His affect overall is restricted. Plan: Patient will be maintained on current psychotropic medication regimen. Continue to monitor for any medication side effects and monitor her response to treatment.
[2020-01-30] MEDS: SERTRALINE 100 MG TAB PO SCH (22:30)
[2020-01-31] MEDS: cloNIDine HCL 0.1 MG TAB PO SCH ×2 (08:41→22:06)
[2020-01-31] MEDS: NICOTINE 14MG/24HR PATCH TRANSDERM SCH (08:41)
[2020-01-31] MEDS: MULTIVITAMINS, THERA 1 EACH TAB PO SCH (08:41)
[2020-01-31] MEDS: OLANZapine 10 MG TAB PO SCH ×3 (08:41→22:06)
[2020-01-31] MEDS: FAMOTIDINE 20 MG TAB PO SCH ×2 (08:41→22:06)
[2020-01-31] MEDS: BACITRACIN 500 UNIT/GM OINT 28.4 GM TUBE TOPICAL SCH (08:41)
--- NOTE | 2020-01-31 11:29 | P.PN ---
Progress Note - Text Interval history: The patient's found in group he follows me to an interview room. He states that his mood is better. He states that he is sleeping at night appetite stable. He has been attending more groups. Staff report he seems to be more interactive in conversations. He states he does still have the thought broadcasting. He reports no command auditory hallucinations. He is reporting no suicidal thoughts today. He expresses concern that he will have to hide his scars from others by always wearing long sleeve shirts. His wounds do continue to heal we expect that surgery will remove the other half of the sofie. Mental status exam: The patient is alert he is dressed in his own clothing eye contact is appropriate speech is fluent and spontaneous nonpressured. Affect is brighter. He does show me his wounds they are healing appropriately without sign of infection. He reports having no suicidal ideation. He states that he does have anxiety from time to time. He indicates he does not feel hopeless. He is reporting thought broadcasting which appears to be auditory hallucinations. He states they are noncommanding. He demonstrates no verbal or physical aggressiveness he demonstrates no involuntary repetitive movements. He demonstrates no tangential thinking loose associations or flight of ideas. Insight and judgment slowly improving. Plan: The patient's will continue on his current psychotropic medications. We will monitor him for safety he is encouraged to fully participate in the milieu. Social work will speak with the patient's father again regarding discharge planning. If the patient demonstrates continued improvement he may be appropriate for discharge sometime this week. We will await recommendations from surgery regarding stable removal. Vital signs reviewed.
[2020-01-31] MEDS: LORazepam 1 MG TAB PO PRN (13:43)
[2020-01-31] MEDS: SERTRALINE 100 MG TAB PO SCH (22:06)
[2020-02-01] MEDS: LORazepam 1 MG TAB PO PRN (05:51)
[2020-02-01] MEDS: cloNIDine HCL 0.1 MG TAB PO SCH ×2 (08:56→20:58)
[2020-02-01] MEDS: FAMOTIDINE 20 MG TAB PO SCH ×2 (08:56→20:58)
[2020-02-01] MEDS: NICOTINE 14MG/24HR PATCH TRANSDERM SCH (08:56)
[2020-02-01] MEDS: OLANZapine 10 MG TAB PO SCH ×3 (08:56→20:58)
[2020-02-01] MEDS: MULTIVITAMINS, THERA 1 EACH TAB PO SCH (08:56)
[2020-02-01] MEDS: BACITRACIN 500 UNIT/GM OINT 28.4 GM TUBE TOPICAL SCH (08:57)
--- NOTE | 2020-02-01 10:56 | P.PN ---
Progress Note - Text Interval history: The patient is found in group he follows me to an interview room. He indicates his mood is okay. He has been attending more groups. Sleep is been stable appetite is stable. He continues to speak with his father via phone. I did review social work notes regarding their conversation with his father. The remainder of the sofie in the patient's wounds were removed. The patient has no questions or concerns regarding his psychotropic medication. He indicates that he is not hearing any voices today or any thought broadcasting. Mental status exam: The patient is alert he is dressed in his own clothing hygiene adequate grooming he's mildly disheveled. Affect is brighter he engages more readily in conversation. He does use some humor appropriately. He indicates he is having no hopeless thoughts or any suicidal ideation intent or plan. He reports no homicidal ideation intent or plan. He is reporting no hallucinations today. He is not responding to any hallucinations during our conversation. It's likely he still has residual feelings of guilt but he is no longer spontaneously discussing those. He demonstrates no verbal or physical aggressiveness he demonstrates no involuntary repetitive movements. Insight and judgment slowly improving. Plan: The patient will continue on his current psychotropic medication. We will monitor him for safety. We are considering discharging him tomorrow. He is encouraged to continue participating in the milieu. Vital signs reviewed.
[2020-02-01] MEDS: SERTRALINE 100 MG TAB PO SCH (20:58)
[2020-02-02] MEDS: LORazepam 1 MG TAB PO PRN (06:05)
[2020-02-02 06:08] VITALS: RESP 15; TEMP 98.1
[2020-02-02] MEDS: FAMOTIDINE 20 MG TAB PO SCH (08:42)
[2020-02-02] MEDS: BACITRACIN 500 UNIT/GM OINT 28.4 GM TUBE TOPICAL SCH (08:42)
[2020-02-02] MEDS: OLANZapine 10 MG TAB PO SCH (08:42)
[2020-02-02] MEDS: MULTIVITAMINS, THERA 1 EACH TAB PO SCH (08:42)
[2020-02-02] MEDS: cloNIDine HCL 0.1 MG TAB PO SCH (08:42)
[2020-02-02 08:44] VITALS: BP 133/75; PULSE 92
--- NOTE | 2020-02-02 09:56 | P.DS ---
Providers Date of admission: 01/15/20 16:30 Expected date of discharge: 02/02/20 Attending physician: Danis Zendejas Consults: 01/15/20 16:52 Consult Physician Routine Consulting Provider: Richard Yu Consult Reason/Comments: H and P Do you want consulting provider notified?: Yes Primary care physician: Stated None - Discharge Diagnosis(es) (1) Schizophrenia, chronic with acute exacerbation Current Visit: No Status: Acute Priority: High (2) Cannabis use disorder, moderate, dependence Current Visit: Yes Status: Acute Priority: Medium Hospital Course: Brief summary admission note: This patient is a 24-year-old single male who was admitted to the hospital after he attempted suicide via large lacerations on his upper extremities and another one on his neck. The patient lacerated his upper extremities numerous times with a razor blade. His forearm lacerations were quite large beginning at his antecubital fossa and going to his distal wrists in a longitudinal fashion, bilaterally. He also self-induced a laceration on his neck. The patient had to be brought to the operating room to close his wounds in layers. He had numerous skin sofie placed on all wounds. The patient was seen by Dr. Patel in psychiatric consultation on 01/12/2020. Once he was medically stabilized he was transferred to the mental health unit. Dr. Almanzar then saw him and performed the psychiatric evaluation on the mental health unit. Please refer to that document for full detail. Summary of hospital course. The patient was admitted to the mental health unit voluntarily. We reviewed his presenting psychiatric symptoms and his treatment options. He had indicated experiencing acute symptoms of psychosis. He described it as thought broadcasting but it appeared to be auditory hallucinations. They were making derogatory comments. He had an overwhelming sense that he had done something wrong in the past and was going to be punished by the legal system for his actions. He was started on Zyprexa 10 mg [address] Almanzar. After numerous days it was apparent that the Zyprexa was not providing enough clinical benefit although there may have been some. We noticed that his affect did brighten and he was more interactive. He described mood symptoms in the form of depression. He described continued hopelessness thinking. He also was focused on anxiety symptoms. To address those concerns we initiated Zoloft and that medication was titrated to 100 mg daily. Since the symptoms of psychosis still required further treatment we decided to augment the Zyprexa with Prolixin. This was titrated to 5 mg at bedtime. After several days with this regimen he seems to be improving. He indicates that the hallucinations are quieter he states there are times when they don't exist at all. He is no longer reporting any hopelessness thinking or any suicidal ideation. Today he states when he looks at his scars he will be reminded that he needs to move on and remember the reasons to live. The patient was seen by internal medicine for routine history and physical exam surgery has provide recommendations regarding staple removal. During the hospitalization he was noted to have some elevations of blood pressure with some tachycardia. An EKG was performed which demonstrated a sinus rhythm. Internal medicine added clonidine 0.1 mg twice daily. His blood pressure did respond with that medication. The patient's advised to follow-up with a primary care physician as an outpatient. All of the sofie have not been removed. Social work met with the patient to complete a psychosocial assessment and for discharge planning purposes. The patient's father has been involved in treatment and discharge planning. The patient will be residing with his father full-time in [place]. We learned that the patient had attempted suicide shortly after moving out of his father's home to live independently. Obviously we recommend that he remain at his father's home or placement in a care home could be considered. It appears the patient's follow-up care will occur in [facility]. The patient demonstrated no agitated behavior during his stay he has been pleasant and directable. Mental status exam: The patient is a male appearing his stated age he is dressed in his own clothing which has been the same throughout the hospital ization. He has long curly hair is a disheveled appearance hygiene is adequate. Eye contact is appropriate. Speech is fluent spontaneous nonpressured. His affect is brighter he is able to demonstrate some inappropriate smiling. He demonstrates no tangential thinking loose associations or flight of ideas. He reports ongoing auditory hallucinations that he characterizes as "thought broadcasting". These are quieter and sometimes absent. He indicates that they are noncommanding. Specifically he states he is experiencing no hallucinations directing self-harm or harm to others. He is reporting no hopelessness thinking he is reporting no suicidal ideation intent or plan. He reports no homicidal ideation intent or plan. He seated calmly in the chair he demonstrates no verbal or physical aggressiveness he demonstrates no involuntary repetitive movements. He is oriented to person place and date. He describes future oriented thinking focusing on things he would like to do once discharged. Impressions 1. Schizophrenia rule out schizoaffective disorder depressed type, cannabis use disorder moderate Plan: The patient will be discharged mental health unit today. His father will pick him up and he will reside with his father full-time. Outpatient mental health follow-up will be arranged in [facility] closer to his father's home. The patient will continue on Zyprexa 10 mg 3 times daily, Prolixin 5 mg at bedtime, Zoloft 100 mg at bedtime. Ideally we would have managed his acute psychosis with one antipsychotic. This was not possible as he did not sufficiently respond to the Zyprexa alone. He has had past medication trials with Haldol and Risperdal that were unsuccessful. It may be possible that he will not need the Prolixin long-term but I will leave this to the outpatient clinician to decide. I am hoping that the Zoloft demonstrates efficacy over the next several weeks which will address depressive and anxiety symptoms. The patient's father has agreed to monitor the patient's medication and administer those for safekeeping. The patient is instructed to abstain from any use of alcohol marijuana or any illicit drug. He is agreeable. He does not feel that he requires inpatient chemical dependency treatment. He does not feel that he needs a medication prescribed specifically for substance use. At this time there is no imminent safety risk the patient is able to be discharged to outpatient care as he will be residing with his father. The patient is instructed to return to the hospital any acute safety concerns. Patient Condition at Discharge: Stable Plan - Discharge Summary Discharge Rx Participant: No New Discharge Prescriptions: New cloNIDine HCL [Catapres] 0.1 mg PO BID #60 tab fluPHENAZine [Prolixin] 5 mg PO HS #30 tab Sertraline [Zoloft] 100 mg PO HS #30 tab OLANZapine [ZyPREXA] 10 mg PO TID #45 tab Discontinued ARIPiprazole [Abilify] 2.5 mg PO DAILY tab Cephalexin [Keflex] 500 mg PO TID cap Ibuprofen [Motrin] 600 mg PO Q8H PRN tab PRN Reason: Pain Famotidine [Pepcid] 20 mg PO BID #10 tablet Discharge Medication List OLANZapine [ZyPREXA] 10 mg PO TID #45 tab 02/02/20 [Rx] Sertraline [Zoloft] 100 mg PO HS #30 tab 02/02/20 [Rx] cloNIDine HCL [Catapres] 0.1 mg PO BID #60 tab 02/02/20 [Rx] fluPHENAZine [Prolixin] 5 mg PO HS #30 tab 02/02/20 [Rx] Follow up Appointment(s)/Referral(s): intake,intake [Other] - 1-2 Days Patient Instructions/Handouts: Psychotic Disorder (DC) Activity/Diet/Wound Care/Special Instructions: Activity and diet as tolerated. Avoid the use of street drugs and alcohol. Take all medications as prescribed. When you are in need of refills on your medications please contact your medical provider and/or outpatient psychiatrist to have this done. Please go to scheduled outpatient appointment for aftercare treatment. If symptoms return or become worse, call the crisis line at and/or go to the nearest emergency room for evaluation.
== END 2020-02-02 12:45 | disposition home or self-care (01) | DRG 885 ==
LOC: 3MHU 16:30
PROVIDERS: ADMIT Psychiatry & Neurology Psychiatry; ATTEND Psychiatry & Neurology Psychiatry
DX: F20.9 Schizophrenia, unspecified (principal); S11.91XA Laceration without foreign body of unspecified part of neck, initial encounter; F31.30 Bipolar disorder, current episode depressed, mild or moderate severity, unspecified; F41.9 Anxiety disorder, unspecified; F12.20 Cannabis dependence, uncomplicated; F90.9 Attention-deficit hyperactivity disorder, unspecified type; S51.811A Laceration without foreign body of right forearm, initial encounter; I10 Essential (primary) hypertension; S51.812A Laceration without foreign body of left forearm, initial encounter; S61.512A Laceration without foreign body of left wrist, initial encounter; S61.511A Laceration without foreign body of right wrist, initial encounter; X78.8XXA Intentional self-harm by other sharp object, initial encounter; Z79.899 Other long term (current) drug therapy; Z91.5 Personal history of self-harm; Z87.891 Personal history of nicotine dependence; Z91.048 Other nonmedicinal substance allergy status; Z81.8 Family history of other mental and behavioral disorders
CPT/HCPCS: 80053; 85025; 93005